=== PATIENT | female | born 1985 | race Hispanic/Latino ===

== ENCOUNTER 2023-03-19 18:01 | Emergency (ER) | payer SELFPAY ==
--- OUTSIDE RECORDS SUMMARY | 2023-03-19 18:07 | XMS REPORT | Continuity of Care Document ---
:1985 Author Organization [facility] t Address [address] [place] [address] Care Team Providers Name Role Phone PCP, PATIENT DOES NOT HAVE A Primary Care Physician UnavailKAREN Braxton Attending Clinician Unavailable Karen Mae CNM Attending Clinician DAVIDSON RHODES Attending Clinician Unavailable [facility] Attending Clinician Unavailable Unknown, Attending Attending Clinician Unavailable RAUL STAPLETON Attending Clinician Unavailable NurseNew Rmchsudheer Rgv Cprit Obgyn Attending Clinician Unavail able Raul Cuello Attending Clinician [phone] Doctor Unassigned, Ferdinand Attending Clinician Unavailable DAO YO Attending Clinician Unavailable Dao Gautam Attending Clinician LINUS VARGAS Attending Clinician Unavailable Linus Vargas MD Attending Clinician Cruz Bonilla MD Attending Clinician Minesh Reaves MD Attending Clinician Sav Claros DO Attending Clinician Aicha WOLFE, Hong Ortega Attending Clinician MINESH REAVES Attending Clinician Unavailable BERKLEY MORALES Attending Clinician Unavailable Carmen JEWELRY POLISHER, Berkley N Attending Clinician Lab, Ang-Rmchp Attending Clinician Unavailable Ultrasound, Ang-Mfm Attending Clinician Unavailable Po Sandy DOy Attending Clinician GOMEZ PATTON Attending Clinician Unavailable Provider, Ang-[facility] Temp Attending Clinician Unavailable La WHCNPGomez O Attending Clinician [phone] Lab, Pea-Rmchp Attending Clinician Unavailable Traci Cleary MD Attending Clinician Dhruv KWOK, Selam Dee Attending Clinician SELAM CORONADO Attending Clinician Unavailable 1, [facility] Us Room Attending Clinician Unavailable LINSU VARGAS Admitting Clinician Unavailable Linus Vargas MD Admitting Clinician Payers Payer Name Policy Type Policy Number Effective Date Expiration Date [employer] [id number] 2023 ALEKS 101-150% 00:00:00 LANDON MOM CHIP [id number] 2021 2021 YVONNE LOW [employer] 00:00:00 00:00:00 Problems Condition Condition Condition Status Onset Resolution Last Treating Co mments Source Name Details Category Date Date Treatment Clinician Date Elevated Elevated Disease Active 2022-05 Unive rs blood blood 0-07 ity of pressure pressure 00:00: [place] reading reading 00 Medical without without Branch diagnosis diagnosis of of hypertensi hypertensi on on Disease Active Univers (spontaneo (spontaneo 1-20 it y of [place] vaginal [place] vaginal [place] delivery[place] delivery[place] 00 [facility] Branch Single Single Disease Active Univers live live 1-20 it y of 00:00: [place] 00 Medical Branch History of History of Disease Active U nivers bilateral bilateral 1-20 ity of tubal tubal 00:00: [place] ligation ligation 00 Medica l Branch Gestationa Gestationa Disease Active U nivers l l 1-20 ity of hypertensi hypertensi 00:00: [place] on on 00 Medical Branch 39 weeks 39 weeks Disease Active Unive rs gestation gestation 1-18 ity of of of 00:00: [place] 00 [facility] Branch Encounter Encounter Disease Active Uni vers for for 1-18 ity of induction induction 00:00[place] of labor of labor 00 Medica [place] Branch Overweight Overweight Disease Active 2020-05 U nivers (BMI (BMI 2-23 ity of 25.0-29.9) 25.0-29.9) 00:00: [place] 00 [place] AMA AMA Disease Active 2020-05 Univers (advanced (advanced 2-09 ity of maternal maternal 00:00: [place] age) age) 00 Medical multigravi multigravi Br anch da 35+, da 35+, second second trimester trimester Multiparit Multiparit Disease Active 2020-05 U nivers y y 2-09 ity of 00:00: [place] 00 Medical Branch 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) 00 Medica l infection infection Bran ch Anemia of Anemia of Disease Active 2020-05 Uni vers mother in mother in 209 ity of , , 00:00: [place] antepartum antepartum 00 Me dical Branch Diet Diet Disease Active 2020-05 Univers controlled controlled 2- it y of gestationa gestationa 00:00: [place] l diabetes l diabetes 00 Me dical mellitus mellitus Branch (GDM), (GDM), antepartum antepartum Supervisio Supervisio Disease Active 2020-05 U nivers n of high n of high 2-09 ity of risk risk 00:00: [place] 00 [facility] in third in third Branch trimester trimester Anemia of Anemia of Disease Active 2020-05 Uni vers mother in mother in 2 ity of , , 00:00: [place] antepartum antepartum 00 Me dical Branch Maternal Maternal Disease Active Overview: Un joyce varicella, varicella, 01-20 Formattin ity of non-immune non-immune 00:00: g of this [place] note Medical might be Branch different from the original. Address in PP Obese Obese Disease Active Overview: Univer s 09-23 Formattin ity of 00:00: g of this [place] note Medical might be Branch different from the original. ICD10 Diagnosis Term [employer] Utility Allergies, Adverse Reactions, Alerts Allergy Allergy Status Severity Reaction(s) Onset Inactive Treating Comm ents Source Name Type Date Date Clinician NO KNOWN Drug Active Univers ALLERGIE Class ity of S [place] [facility] [place] Social History Social Habit Start Date Stop Date Quantity Comments Source ASSERTION 2020-09-20 University of 00:00:00 [facility] Sexual orientation Univer sity of [place] [facility] [place] History SDOH University o f Alcohol Frequency [place] M edical Branch History SDOH University o f Alcohol Std Drinks [place] [facility] History SDOH University o f Alcohol Binge [place] [facility] Exposure to Not sure University of SARS-CoV-2 (event) [facility] Alcohol intake 2023-03-07 2023-03-07 Current drinker Unive rsity of 00:00:00 00:00:00 of alcohol [place] [facility] (finding) Branch History of Social 2023-03-07 2023-03-07 Univers ity of function 00:00:00 00:00:00 [facility] Tobacco use and 2023-02-20 2023-02-20 Smokeless Universit y of exposure 00:00:00 00:00:00 tobacco non-user [facility] dical [place] Alcohol Comment 2012-09-23 2012-09-23 Socially Universit y of 00:00:00 00:00:00 [facility] Sex Assigned At [birth year]28 Universit y of 00:00:00 00:00:00 [facility] Smoking Status Start Date Stop Date Source Tobacco smoking [facility] Never smoked tobacco [facility] Medications Ordered Filled Start Stop Current Ordering Indication Dosage Frequency Signature Comments Components Source Medication Medication Date Date Medication? Clinician (SIG) Name Name SERTraline 2022-05 Yes [id number] 100mg Take 1 Univers 100 mg 0-04 tablet by ity of tablet 00:00: mouth [place] 00 daily. Medical Branch SERTraline 2022-05 Yes [id number] 100mg Take 1 Univers 100 mg 0-04 tablet by ity of tablet 00:00: mouth [place] 00 daily. Medical Branch SERTraline 2022-05 Yes [id number] 100mg Take 1 Univers 100 mg 0-04 tablet by ity of tablet 00:00: mouth [place] 00 daily. Medical Branch SERTraline 2022-05 Yes [id number] 100mg Take 1 Univers 100 mg 0-04 tablet by ity of tablet 00:00: mouth [place] 00 daily. Medical Branch 2021-0 Yes [id number] 1{tbl} Take 1 Univers [id number] 1-20 tablet by ity of fum-folic 00:00: mouth [place] () 00 daily. Medical 27 mg iron- Branch 1 mg Tab docusate 2021-0 Yes [id number] 240mg Take 1 U nivers calcium 240 1-20 capsule by it y of mg capsule 00:00: mouth once [place] 00 daily as Medical needed for Branch Constipati on. ferrous 2021-0 Yes [id number] 325mg Take 1 Un joyce sulfate 325 1-20 tablet by ity of mg (65 mg 00:00: mouth 2 [place] iron) 00 (two) Medical tablet times Branch daily. ibuprofen 0 Yes [id number] 600mg Take 1 Univers 600 mg 1-20 tablet by ity of tablet 00:00: mouth [place] 00 every 6 Medical (six) Branch hours as needed (Pain). Take with food or milk. 2021-0 Yes [id number] 1{tbl} Take 1 Univers [id number] 1-20 tablet by ity of fum-folic 00:00: mouth [place] () 00 daily. Medical 27 mg iron- Branch 1 mg Tab docusate 0 Yes [id number] 240mg Take 1 U nivers calcium 240 1-20 capsule by it y of mg capsule 00:00: mouth once [place] 00 daily as Medical needed for Branch Constipati on. ferrous 2021-0 Yes [id number] 325mg Take 1 Un joyce sulfate 325 1-20 tablet by ity of mg (65 mg 00:00: mouth 2 [place] iron) 00 (two) Medical tablet times Branch daily. ibuprofen 0 Yes [id number] 600mg Take 1 Univers 600 mg 1-20 tablet by ity of tablet 00:00: mouth [place] 00 every 6 Medical (six) Branch hours as needed (Pain). Take with food or milk. ibuprofen 0 Yes 600mg 600 mg, Univ ers (IBU) 1-20 Oral, Q6H, ity of tablet 600 00:00: First dose [place] mg 00 (after Medical last Branch modificati on) on Sat06/07/21 at 1800, Until Discontinu ed, Routine simethicone 2022-0 Yes 125mg 125 mg, Un joyce (MYLICON) 1-20 Oral, ity of chewable 00:00: PC+HS, [place] tablet 125 00 First dose Med ical mg on Sat Branch 06/07/21 at 1800, Until Discontinu ed, Routine 2021-0 Yes [id number] 1{tbl} Take 1 Univers [id number] 1-20 tablet by ity of fum-folic 00:00: mouth [place] () 00 daily. Medical 27 mg iron- Branch 1 mg Tab docusate 0 Yes [id number] 240mg Take 1 U nivers calcium 240 1-20 capsule by it y of mg capsule 00:00: mouth once [place] 00 daily as Medical needed for Branch Constipati on. ferrous 0 Yes [id number] 325mg Take 1 Un joyce sulfate 325 1-20 tablet by ity of mg (65 mg 00:00: mouth 2 [place] iron) 00 (two) Medical tablet times Branch daily. ibuprofen 0 Yes [id number] 600mg Take 1 Univers 600 mg 1-20 tablet by ity of tablet 00:00: mouth [place] 00 every 6 Medical (six) Branch hours as needed (Pain). Take with food or milk. ibuprofen Yes 600mg 600 mg, Univ ers (IBU) 1-20 Oral, Q6H, ity of tablet 600 00:00: First dose [place] mg 00 (after Medical last Branch modificati on) on Sat06/07/21 at 1800, Until Discontinu ed, Routine simethicone Yes 125mg 125 mg, Un joyce (MYLICON) 1-20 Oral, ity of chewable 00:00: PC+HS, [place] tablet 125 00 First dose Med ical mg on Sat Branch 06/07/21 at 1800, Until Discontinu ed, Routine 0 Yes [id number] 1{tbl} Take 1 Univers [id number] 1-20 tablet by ity of fum-folic 00:00: mouth [place] () 00 daily. Medical 27 mg iron- Branch 1 mg Tab docusate 0 Yes [id number] 240mg Take 1 U nivers calcium 240 1-20 capsule by it y of mg capsule 00:00: mouth once [place] 00 daily as Medical needed for Branch Constipati on. ferrous 2022-0 Yes [id number] 325mg Take 1 Un joyce sulfate 325 1-20 tablet by ity of mg (65 mg 00:00: mouth 2 [place] iron) 00 (two) Medical tablet times Branch daily. ibuprofen 0 Yes [id number] 600mg Take 1 Univers 600 mg 1-20 tablet by ity of tablet 00:00: mouth [place] 00 every 6 Medical (six) Branch hours as needed (Pain). Take with food or milk. Yes [id number] 1{tbl} Take 1 Univers [id number] 1-20 tablet by ity of fum-folic 00:00: mouth [place] () 00 daily. Medical 27 mg iron- Branch 1 mg Tab docusate Yes [id number] 240mg Take 1 U nivers calcium 240 1-20 capsule by it y of mg capsule 00:00: mouth once [place] 00 daily as Medical needed for Branch Constipati on. ferrous Yes [id number] 325mg Take 1 Un joyce sulfate 325 1-20 tablet by ity of mg (65 mg 00:00: mouth 2 [place] iron) 00 (two) Medical tablet times Branch daily. ibuprofen Yes [id number] 600mg Take 1 Univers 600 mg 1-20 tablet by ity of tablet 00:00: mouth [place] 00 every 6 Medical (six) Branch hours as needed (Pain). Take with food or milk. Yes [id number] 1{tbl} Take 1 Univers [id number] 1-20 tablet by ity of fum-folic 00:00: mouth [place] () 00 daily. Medical 27 mg iron- Branch 1 mg Tab docusate 0 Yes [id number] 240mg Take 1 U nivers calcium 240 1-20 capsule by it y of mg capsule 00:00: mouth once [place] 00 daily as Medical needed for Branch Constipati on. ferrous 0 Yes [id number] 325mg Take 1 Un joyce sulfate 325 1-20 tablet by ity of mg (65 mg 00:00: mouth 2 [place] iron) 00 (two) Medical tablet times Branch daily. ibuprofen 0 Yes [id number] 600mg Take 1 Univers 600 mg 1-20 tablet by ity of tablet 00:00: mouth [place] 00 every 6 Medical (six) Branch hours as needed (Pain). Take with food or milk. 2022- No [id number] 1{tbl} Take 1 Univers [id number] 1-20 10-04 tablet by it y of fum-folic 00:00: 00:00 mouth [place] () 00 :00 daily. Medical 27 mg iron- Branch 1 mg Tab docusate 2022- No [id number] 240mg Take 1 Univers calcium 240 1-20 10-04 capsule by i ty of mg capsule 00:00: 00:00 mouth once [place] 00 :00 daily as Medical needed for Branch Constipati on. ferrous 2022- No [id number] 325mg Take 1 U nivers sulfate 325 1-20 10-04 tablet by it y of mg (65 mg 00:00: 00:00 mouth 2 [place] iron) 00 :00 (two) Medical tablet times Branch daily. ibuprofen 2022- No [id number] 600mg Take 1 Univers 600 mg 1-20 10-04 tablet by ity of tablet 00:00: 00:00 mouth [place] 00 :00 every 6 Medical (six) Branch hours as needed (Pain). Take with food or milk. 2022- No [id number] 1{tbl} Take 1 Univers [id number] 1-20 10-04 tablet by it y of fum-folic 00:00: 00:00 mouth [place] () 00 :00 daily. Medical 27 mg iron- Branch 1 mg Tab docusate 2022- No [id number] 240mg Take 1 Univers calcium 240 1-20 10-04 capsule by i ty of mg capsule 00:00: 00:00 mouth once [place] 00 :00 daily as Medical needed for Branch Constipati on. ferrous 2022- No [id number] 325mg Take 1 U nivers sulfate 325 1-20 10-04 tablet by it y of mg (65 mg 00:00: 00:00 mouth 2 [place] iron) 00 :00 (two) Medical tablet times Branch daily. ibuprofen 2022- No [id number] 600mg Take 1 Univers 600 mg 1-20 10-04 tablet by ity of tablet 00:00: 00:00 mouth [place] 00 :00 every 6 Medical (six) Branch hours as needed (Pain). Take with food or milk. HYDROcodone 2021- No [id number] 1{tbl} Take 1 U nivers -acetaminop 1-20 - tablet by it y of hen 5-325 00:00: 05:59 mouth [place] mg tablet 00 :00 every 6 Medical (six) Branch hours as needed for Pain (scale 7-10) for up to 7 days. Indication s: acute pain HYDROcodone 2021- No [id number] 1{tbl} Take 1 U nivers -acetaminop 1-20 - tablet by it y of hen 5-325 00:00: 05:59 mouth [place] mg tablet 00 :00 every 6 Medical (six) Branch hours as needed for Pain (scale 7-10) for up to 7 days. Indication s: acute pain HYDROcodone No [id number] 1{tbl} Take 1 U nivers -acetaminop -06-16 tablet by it y of hen 5-325 00:00: 05:59 mouth [place] mg tablet 00 :00 every 6 Medical (six) Branch hours as needed for Pain (scale 7-10) for up to 7 days. Indication s: acute pain HYDROcodone Yes 1{tbl} 1 tablet, Univers -acetaminop 1-19 Oral, ity of hen (NORCO 23:35: Q6HPRN, [place] 5) 5-325 mg 56 Starting Medi scooter tablet 1 on Wed Branch tablet 06/07/21 at 1735, Until Discontinu ed, Routine, Pain (scale 7-10) HYDROcodone Yes 1{tbl} 1 tablet, Univers -acetaminop 1-19 Oral, ity of hen (NORCO 23:35: Q6HPRN, [place] 5) 5-325 mg 56 Starting Medi scooter tablet 1 on Wed Branch tablet 06/07/21 at 1735, Until Discontinu ed, Routine, Pain (scale 7-10) rho(D) Yes 300ug 300 mcg, Univer s immune 1-19 Intramuscu ity of globulin 23:18: lar, ONCE, [place] as (RHOGAM) 42 For 1 Medical syringe 300 dose, Branch mcg Conditiona l, Routine rho(D) Yes 300ug 300 mcg, Univer s immune 1-19 Intramuscu ity of globulin 23:18: lar, ONCE, [place] (RHOGAM) 42 For 1 Medical syringe 300 dose, Branch mcg Conditiona l, Routine diphenhydrA 2021-0 Yes 25mg 25 mg, Univ ers MINE 06-07 Oral, ity of (BENADRYL) 23:18: Q6HPRN, [place] tablet 25 24 Starting Medica l mg on Wed Branch 06/07/21 at 1718, Until Discontinu ed, Routine, Sleep, Itching ondansetron 2022-0 Yes 4mg 4 mg, Slow Univers (ZOFRAN 19 IV Push, ity of (PF)) 23:18: Q8HPRN, [place] injection 4 24 Starting Medi scooter mg on Wed Branch 06/07/21 at 1718, Until Discontinu ed, Routine, Nausea and Vomiting (N/V) docusate 2-0 Yes 240mg 240 mg, Unive rs calcium 06-07 Oral, ity of (SURFAK) 23:18: QDAILYPRN, [place] capsule 240 24 Starting Medi scooter mg on Wed Branch 06/07/21 at 1718, Until Discontinu ed, Routine, Constipati on magnesium 2021-0 Yes 30mL 30 mL, Univer s hydroxide 06-07 Oral, ity of (MILK OF 23:18: QDAILYPRN, [place] MAGNESIA) 24 Starting Medica l 400 mg/5 mL on Wed Branch suspension 06/07/21 at 30 mL 1718, Until Discontinu ed, Routine, Constipati on diphenhydrA 2-0 Yes 25mg 25 mg, Univ ers MINE 06-07 Oral, ity of (BENADRYL) 23:18: Q6HPRN, [place] tablet 25 24 Starting Medica l mg on Wed Branch 06/07/21 at 1718, Until Discontinu ed, Routine, Sleep, Itching ondansetron 2-0 Yes 4mg 4 mg, Slow Univers (ZOFRAN 1-19 IV Push, ity of (PF)) 23:18: Q8HPRN, [place] injection 4 24 Starting Medi scooter mg on Wed Branch 06/07/21 at 1718, Until Discontinu ed, Routine, Nausea and Vomiting (N/V) docusate 2022-0 Yes 240mg 240 mg, Unive rs calcium 06-07 Oral, ity of (SURFAK) 23:18: QDAILYPRN, [place] capsule 240 24 Starting Medi scooter mg on Wed Branch 06/07/21 at 1718, Until Discontinu ed, Routine, Constipati on magnesium 0 Yes 30mL 30 mL, Univer s hydroxide 06-07 Oral, ity of (MILK OF 23:18: QDAILYPRN, [place] MAGNESIA) 24 Starting Medica l 400 mg/5 mL on Wed Branch suspension 06/07/21 at 30 mL 1718, Until Discontinu ed, Routine, Constipati on acetaminoph 0 Yes 650mg 650 mg, Un joyce en 06-07 Oral, ity of (TYLENOL) 23:18: Q6HPRN, [place] tablet 650 23 Starting Medic al mg on Wed Branch 06/07/21 at 1718, Until Discontinu ed, Routine, Pain (scale 1-3) benzocaine- 2021-0 Yes Topical, Un joyce menthol 06-07 PRN, ity of (DERMOPLAST 23:18: Starting [place] ) 20-0.5 % 23 on Wed Medical topical 06/07/21 at Branch spray 1718, Until Discontinu ed, Routine, Perineum discomfort acetaminoph 0 Yes 650mg 650 mg, Un joyce en 06-07 Oral, ity of (TYLENOL) 23:18: Q6HPRN, [place] tablet 650 23 Starting Medic al mg on Wed Branch 06/07/21 at 1718, Until Discontinu ed, Routine, Pain (scale 1-3) benzocaine- 0 Yes Topical, Un joyce menthol 06-07 PRN, ity of (DERMOPLAST 23:18: Starting [place] ) 20-0.5 % 23 on Wed Medical topical 06/07/21 at Branch spray 1718, Until Discontinu ed, Routine, Perineum discomfort bupivacaine 2021- No PRN, Unive rs (preserv 06-07 Starting ity of free) 20:37: 23:36 on Sat [place] (SENSORCAIN 00 :59 06/07/21 at Ks dicnh E MPF) 0.25 1437, Branch % (2.5 Until Sat mg/mL) 06/07/21 at injection 1736, Routine, Intra-op lactated Yes 500mL at 999 Univer s ringers IV 1- mL/hr, 500 ity of infusion 07:47: mL, IV [place] 500 mL 51 Infusion, Medical PRN - SEE Branch INSTRUCTIO NS, 1 dose, Starting on Sat06/07/21 at 0147, Until Discontinu ed, Routine lactated 0 Yes 500mL at 999 Univer s ringers IV 1- mL/hr, 500 ity of infusion 07:47: mL, IV [place] 500 mL 51 Infusion, Medical PRN - SEE Branch INSTRUCTIO NS, 1 dose, Starting on Sat06/07/21 at 0147, Until Discontinu ed, Routine sodium 2021- No 30mL 30 mL, Univers citrate-cit 06-07 Oral, ity of bairon acid 07:47: 19:44 PRE-PROCED [place] (BICITRA) 51 :00 URE ONCE, Medic al 500-334 1 dose, Branch mg/5 mL Starting solution 30 on Sat mL 06/07/21 at 0147, Until Discontinu ed, Routine, Surgery/Pr ocedure fentaNYL-ro 2021- No Epidural, Univers pivacaine 2 06-07 CONTINUOUS i ty of mcg/mL-0.1 06:40: 22:50 PRN, [place] % (PF) in 00 :51 Starting Medica l NS 200 mL on Sat Branch epidural 06/07/21 at infusion 0040, RTU Until Discontinu ed, Routine, Intra-op lidocaine-e 2021- No Epidural, Univers pinephrine 06-07 ONCE INTRA it y of (XYLOCAINE 06:36: 22:50 PROCEDURE, [place] W/EPINEPHRI 00 :51 Starting Medi scooter NE) 1.5 on Sat Branch %-1:200,000 06/07/21 at injection 0036, Until Discontinu ed, Routine, Intra-op [id number] IV 2021- No 1000mL at 125 Uni vers infusion 06-07 mL/hr, IV ity o f 1,000 mL 04:15: 23:36 Infusion, [place] as 00 :59 CONTINUOUS Medical , Starting Branch on Sat06/06/21 at 2215, Until Sat06/07/21 at 1736, Routine Sliding 2021- No Subcutaneo Uni vers Scale 06-07 us, ity of Insulin - 04:11: 23:36 SEE-INSTRU [place] Regular + 45 :59 CTIONS, Medical Fsbg Starting Branch Testing on Sat06/06/21 at 2211, Until Sat06/07/21 at 1736, Routine sodium 2021- No 30mL 30 mL, Univers citrate-cit 06-07 Oral, ity of bairon acid 04:10: 05:26 PRE-PROCED [place] (BICITRA) 02 :00 URE ONCE, Medic al 500-334 1 dose, Branch mg/5 mL Starting solution 30 on Sat mL 06/06/21 at 2210, Until Discontinu ed, Routine, Surgery/Pr ocedure [facility] 2020-05 Yes [id number] 500mg Take 1 Univers r (VALTREX) 2-23 tablet by ity of 500 mg 00:00: mouth [place] tablet 00 daily. [facility] Yes [id number] 500mg Take 1 Univers r (VALTREX) 2-23 tablet by ity of 500 mg 00:00: mouth [place] tablet 00 daily. [facility] Yes [id number] 500mg Take 1 Univers r (VALTREX) 2-23 tablet by ity of 500 mg 00:00: mouth [place] tablet 00 daily. [facility]05 Yes [id number] 500mg Take 1 Univers r (VALTREX) 2-23 tablet by ity of 500 mg 00:00: mouth [place] tablet 00 daily. Medical Branch valACYclovi 2020-05 Yes [id number] 500mg Take 1 Univers r (VALTREX) 2-23 tablet by ity of 500 mg 00:00: mouth [place] tablet 00 daily. [facility]05 Yes [id number] 500mg Take 1 Univers r (VALTREX) 2-23 tablet by ity of 500 mg 00:00: mouth [place] tablet 00 daily. [facility]05 Yes [id number] 500mg Take 1 Univers r (VALTREX) 2-23 tablet by ity of 500 mg 00:00: mouth [place] tablet 00 daily. [facility]05 Yes [id number] 500mg Take 1 Univers r (VALTREX) 2-23 tablet by ity of 500 mg 00:00: mouth [place] tablet 00 daily. Medical Branch [facility] 2020-05 Yes [id number] 500mg Take 1 Univers r (VALTREX) 2-23 tablet by ity of 500 mg 00:00: mouth [place] tablet 00 daily. Medical Branch [facility] 2020-05 Yes [id number] 500mg Take 1 Univers r (VALTREX) 2-23 tablet by ity of 500 mg 00:00: mouth [place] tablet 00 daily. Medical Branch [facility] 2020-05 Yes [id number] 500mg Take 1 Univers r (VALTREX) 2-23 tablet by ity of 500 mg 00:00: mouth [place] tablet 00 daily. Medical Branch [facility] 2020-05 Yes [id number] 500mg Take 1 Univers r (VALTREX) 2-23 tablet by ity of 500 mg 00:00: mouth [place] tablet 00 daily. Medical Branch [facility] 2020-05 Yes [id number] 500mg Take 1 Univers r (VALTREX) 2-23 tablet by ity of 500 mg 00:00: mouth [place] tablet 00 daily. Medical Branch [facility] 2020-05 Yes [id number] 500mg Take 1 Univers r (VALTREX) 2-23 tablet by ity of 500 mg 00:00: mouth [place] tablet 00 daily. Medical Branch [facility] 2020-05 Yes [id number] 500mg Take 1 Univers r (VALTREX) 2-23 tablet by ity of 500 mg 00:00: mouth [place] tablet 00 daily. Medical Branch [facility] 2020-05- No [id number] 500mg Take 1 Univers r (VALTREX) 2-23 10-04 tablet by it y of 500 mg 00:00: 00:00 mouth [place] tablet 00 :00 daily. Medical Branch [facility] 2020-05- No [id number] 500mg Take 1 Univers r (VALTREX) 2-23 10-04 tablet by it y of 500 mg 00:00: 00:00 mouth [place] tablet 00 :00 daily. Medical Branch Lancets 2020-05 Yes [id number] Use as Univ ers (COMFORT 1-30 directed ity of LANCETS) 00:00: QID [place] Misc 00 Medical Branch blood sugar 2020-05 Yes [id number] Use as Univers diagnostic 1-30 directed ity o f (ASCENSIA 00:00: QID [place] MICROFILL) 00 Medical strip Branch ONETOUCH 2020- Yes Univers VERIO 1-30 ity of REFLECT 00:00: [place] METER Misc 00 Medical Branch ONETOUCH 2020- Yes Univers DELICA PLUS 1-30 ity of LANCET 33 00:00: [place] gauge Misc 00 Medical Branch Lancets 2020- Yes [id number] Use as Univ ers (COMFORT 1-30 directed ity of LANCETS) 00:00: QID [place] Misc 00 Medical Branch blood sugar 2020-05 Yes [id number] Use as Univers diagnostic 1-30 directed ity o f (ASCENSIA 00:00: QID [place] MICROFILL) 00 Medical strip Branch ONETOUCH 2020-05 Yes Univers VERIO 1-30 ity of REFLECT 00:00: [place] METER Misc 00 Medical Branch ONETOUCH 2020-05 Yes Univers DELICA PLUS 1-30 ity of LANCET 33 00:00: [place] gauge Misc 00 Medical Branch Lancets 2020- Yes [id number] Use as Univ ers (COMFORT 1-30 directed ity of LANCETS) 00:00: QID [place] Misc 00 Medical Branch blood sugar 2020- Yes [id number] Use as Univers diagnostic 1-30 directed ity o f (ASCENSIA 00:00: QID [place] MICROFILL) 00 Medical strip Branch ONETOUCH 2020- Yes Univers VERIO 1-30 ity of REFLECT 00:00: [place] METER Misc 00 [facility] ONETOUCH 2020- Yes Univers DELICA PLUS 1-30 ity of LANCET 33 00:00: [place] gauge Misc 00 [facility] Lancets 2020- Yes [id number] Use as Univ ers (COMFORT 1-30 directed ity of LANCETS) 00:00: QID [place] Misc 00 [facility] blood sugar 2020- Yes [id number] Use as Univers diagnostic 1-30 directed ity o f (ASCENSIA 00:00: QID [place] MICROFILL) 00 Medical strip Branch ONETOUCH 2020-05 Yes Univers VERIO 1-30 ity of REFLECT 00:00: [place] METER Misc 00 [facility] ONETOUCH 2020- Yes Univers DELICA PLUS 1-30 ity of LANCET 33 00:00: [place] gauge Misc 00 [facility] Lancets 2020- Yes [id number] Use as Univ ers (COMFORT 1-30 directed ity of LANCETS) 00:00: QID [place] Misc 00 [facility] blood sugar 2020- Yes [id number] Use as Univers diagnostic 1-30 directed ity o f (ASCENSIA 00:00: QID [place] MICROFILL) 00 Medical strip Branch ONETOUCH 2020-05 Yes Univers VERIO 1-30 ity of REFLECT 00:00: [place] METER Misc 00 [facility] ONETOUCH 2020- Yes Univers DELICA PLUS 1-30 ity of LANCET 33 00:00: [place] gauge Misc 00 [facility] Lancets 2020- Yes [id number] Use as Univ ers (COMFORT 1-30 directed ity of LANCETS) 00:00: QID [place] Misc 00 [facility] blood sugar 2020-05 Yes [id number] Use as Univers diagnostic 1-30 directed ity o f (ASCENSIA 00:00: QID [place] MICROFILL) 00 Medical strip Branch ONETOUCH 2020-05 Yes Univers VERIO 1-30 ity of REFLECT 00:00: [place] METER Misc 00 [facility] ONETOUCH 2020-05 Yes Univers DELICA PLUS 1-30 ity of LANCET 33 00:00: [place] gauge Misc 00 [facility] Lancets 2020- Yes [id number] Use as Univ ers (COMFORT 1-30 directed ity of LANCETS) 00:00: QID [place] Misc 00 [facility] blood sugar 2020-05 Yes [id number] Use as Univers diagnostic 1-30 directed ity o f (ASCENSIA 00:00: QID [place] MICROFILL) 00 Medical strip Branch ONETOUCH 2020- Yes Univers VERIO 1-30 ity of REFLECT 00:00: [place] METER Misc 00 [facility] ONETOUCH 2020- Yes Univers DELICA PLUS 1-30 ity of LANCET 33 00:00: [place] gauge Misc 00 [facility] Lancets 2020-2021- No [id number] Use as Uni vers (COMFORT 1-30 01-20 directed ity of LANCETS) 00:00: 00:00 QID [place] Misc 00 :00 Medical [facility] blood sugar 2020-2021- No [id number] Use as Univers diagnostic 1-30 -20 directed ity of (ASCENSIA 00:00: 00:00 QID [place] MICROFILL) 00 :00 Medical strip Branch ONETOUCH 2020-05- No Univers VERIO 1-30 -20 ity of REFLECT 00:00: 00:00 [place] METER Misc 00 :00 Medical Branch ONETOUCH 2020-05- No Univers DELICA PLUS 1-30 -20 ity of LANCET 33 00:00: 00:00 [place] gauge Misc 00 :00 Medical [facility] Lancets 2020-05- No [id number] Use as Uni vers (COMFORT 06-18-20 directed ity of LANCETS) 00:00: 00:00 QID [place] Misc 00 :00 Medical [facility] blood sugar 2020-05- No [id number] Use as Univers diagnostic 06-18-20 directed ity of (ASCENSIA 00:00: 00:00 QID [place] MICROFILL) 00 :00 Medical strip Branch ONETOUCH 2020-05- No Univers VERIO -30 -20 ity of REFLECT 00:00: 00:00 [place] METER Misc 00 :00 Medical Branch ONETOUCH 2020-05- No Univers DELICA PLUS 1-30 -20 ity of LANCET 33 00:00: 00:00 [place] gauge Misc 00 :00 Medical [facility] Lancets 2020-2021- No [id number] Use as Uni vers (COMFORT 06-18-20 directed ity of LANCETS) 00:00: 00:00 QID [place] Misc 00 :00 Medical Branch blood sugar 2020-2021- No [id number] Use as Univers diagnostic 30 -20 directed ity of (ASCENSIA 00:00: 00:00 QID [place] MICROFILL) 00 :00 Medical strip Branch ONETOUCH 2020-05- No Univers VERIO 1-30 -20 ity of REFLECT 00:00: 00:00 [place] METER Misc 00 :00 Medical Branch ONETOUCH 2020-2021- No Univers DELICA PLUS 1-30 -20 ity of LANCET 33 00:00: 00:00 [place] gauge Misc 00 :00 Medical Branch 1-0 Yes [id number] 1{packe Take 1 Univers vit 9-28 t} Packet by ity of 33-iron-fol 00:00: mouth [place] ic-dha 00 daily. Medical (SELECT-OB Branch + DHA) 29 mg iron-1 mg -250 mg combo pack Yes [id number] 1{packe Take 1 Univers vit 9-28 t} Packet by ity of 33-iron-fol 00:00: mouth [place] ic-dha 00 daily. Medical (SELECT-OB Branch + DHA) 29 mg iron-1 mg -250 mg combo pack Yes [id number] 1{packe Take 1 Univers vit 9-28 t} Packet by ity of 33-iron-fol 00:00: mouth [place] ic-dha 00 daily. Medical (SELECT-OB Branch + DHA) 29 mg iron-1 mg -250 mg combo pack Yes [id number] 1{packe Take 1 Univers vit 9-28 t} Packet by ity of 33-iron-fol 00:00: mouth [place] ic-dha 00 daily. Medical (SELECT-OB Branch + DHA) 29 mg iron-1 mg -250 mg combo pack Yes [id number] 1{packe Take 1 Univers vit 9-28 t} Packet by ity of 33-iron-fol 00:00: mouth [place] ic-dha 00 daily. Medical (SELECT-OB Branch + DHA) 29 mg iron-1 mg -250 mg combo pack Yes [id number] 1{packe Take 1 Univers vit 9-28 t} Packet by ity of 33-iron-fol 00:00: mouth [place] ic-dha 00 daily. Medical (SELECT-OB Branch + DHA) 29 mg iron-1 mg -250 mg combo pack Yes [id number] 1{packe Take 1 Univers vit 9-28 t} Packet by ity of 33-iron-fol 00:00: mouth [place] ic-dha 00 daily. Medical (SELECT-OB Branch + DHA) 29 mg iron-1 mg -250 mg combo pack 0 2021- No [id number] 1{packe Take 1 Univers vit 9-28 01-20 t} Packet by ity of 33-iron-fol 00:00: [place] :00 daily. Medical (SELECT-OB Branch + DHA) 29 mg iron-1 mg -250 mg combo pack 2021- No [id number] 1{packe Take 1 Univers vit 928 01-20 t} Packet by ity of 33-iron-fol 00:00: 00:[place] ic-dha 00 :00 daily. Medical (SELECT-OB Branch + DHA) 29 mg iron-1 mg -250 mg combo pack 2021- No [id number] 1{packe Take 1 Univers vit 9-28 01-20 t} Packet by ity of 33-iron-fol 00:00: 00:[place] ic-dha 00 :00 daily. Medical (SELECT-OB Branch + DHA) 29 mg iron-1 mg -250 mg combo pack Immunizations Ordered Filled Date Status Comments Source Immunization Name Immunization Name TDAP 2021-04-04 Completed University of 00:00:00 [facility] TDAP 2021-04-04 Completed University of 00:00:00 [facility] TDAP 2021-04-04 Completed University of 00:00:00 [facility] TDAP 2021-04-04 Completed University of 00:00:00 [facility] TDAP 2021-04-04 Completed University of 00:00:00 [facility] TDAP 2021-04-04 Completed University of 00:00:00 [facility] TDAP 2021-04-04 Completed University of 00:00:00 [facility] TDAP 2021-04-04 Completed University of 00:00:00 [facility] TDAP 2021-04-04 Completed University of 00:00:00 [facility] TDAP 2021-04-04 Completed University of 00:00:00 [facility] TDAP 2021-04-04 Completed University of 00:00:00 [facility] TDAP 2021-04-04 Completed University of 00:00:00 [facility] TDAP 2021-04-04 Completed University of 00:00:00 [facility] SARS-COV-2 COVID-19 2021-01-08 Completed Unive rsity of MODERNA VACCINE 00:00:00 [facility] SARS-COV-2 COVID-19 2021-01-08 Completed Unive rsity of MODERNA VACCINE 00:00:00 [facility] SARS-COV-2 COVID-19 2021-01-08 Completed Unive rsity of MODERNA VACCINE 00:00:00 [place] [facility] SARS-COV-2 COVID-19 2021-01-08 Completed Unive rsity of MODERNA VACCINE 00:00:00 [place] [facility] SARS-COV-2 COVID-19 2021-01-08 Completed Unive rsity of MODERNA VACCINE 00:00:00 [place] [facility] SARS-COV-2 COVID-19 2021-01-08 Completed Unive rsity of MODERNA VACCINE 00:00:00 [place] [facility] SARS-COV-2 COVID-19 2021-01-08 Completed Unive rsity of MODERNA VACCINE 00:00:00 [place] [facility] SARS-COV-2 COVID-19 2021-01-08 Completed Unive rsity of MODERNA VACCINE 00:00:00 [place] [facility] SARS-COV-2 COVID-19 2021-01-08 Completed Unive rsity of MODERNA VACCINE 00:00:00 [place] [facility] SARS-COV-2 COVID-19 2021-01-08 Completed Unive rsity of MODERNA VACCINE 00:00:00 [place] [facility] SARS-COV-2 COVID-19 2021-01-08 Completed Unive rsity of MODERNA VACCINE 00:00:00 [place] [facility] SARS-COV-2 COVID-19 2021-01-08 Completed Unive rsity of MODERNA VACCINE 00:00:00 [place] [facility] SARS-COV-2 COVID-19 2021-01-08 Completed Unive rsity of MODERNA VACCINE 00:00:00 [place] [facility] SARS-COV-2 COVID-19 2020-12-11 Completed Unive rsity of MODERNA VACCINE 00:00:00 [place] [facility] SARS-COV-2 COVID-19 2020-12-11 Completed Unive rsity of MODERNA VACCINE 00:00:00 [place] [facility] SARS-COV-2 COVID-19 2020-12-11 Completed Unive rsity of MODERNA VACCINE 00:00:00 [place] [facility] SARS-COV-2 COVID-19 2020-12-11 Completed Unive rsity of MODERNA VACCINE 00:00:00 [place] [facility] SARS-COV-2 COVID-19 2020-12-11 Completed Unive rsity of MODERNA VACCINE 00:00:00 [facility] SARS-COV-2 COVID-19 2020-12-11 Completed Unive rsity of MODERNA VACCINE 00:00:00 [facility] SARS-COV-2 COVID-19 2020-12-11 Completed Unive rsity of MODERNA VACCINE 00:00:00 [facility] SARS-COV-2 COVID-19 2020-12-11 Completed Unive rsity of MODERNA VACCINE 00:00:00 [facility] SARS-COV-2 COVID-19 2020-12-11 Completed Unive rsity of MODERNA VACCINE 00:00:00 [facility] SARS-COV-2 COVID-19 2020-12-11 Completed Unive rsity of MODERNA VACCINE 00:00:00 [facility] SARS-COV-2 COVID-19 2020-12-11 Completed Unive rsity of MODERNA VACCINE 00:00:00 [facility] SARS-COV-2 COVID-19 2020-12-11 Completed Unive rsity of MODERNA VACCINE 00:00:00 [facility] SARS-COV-2 COVID-19 2020-12-11 Completed Unive rsity of MODERNA VACCINE 00:00:00 [facility] Rubella 2007-08-26 Completed University of 00:00:00 [facility] Td 2007-08-26 Completed University of 00:00:00 [facility] Rubella 2007-08-26 Completed University of 00:00:00 [facility] Td 2007-08-26 Completed University of 00:00:00 [facility] Rubella 2007-08-26 Completed University of 00:00:00 [facility] Td 2007-08-26 Completed University of 00:00:00 [facility] Rubella 2007-08-26 Completed University of 00:00:00 [facility] Td 2007-08-26 Completed University of 00:00:00 [facility] Rubella 2007-08-26 Completed University of 00:00:00 [facility] Td 2007-08-26 Completed University of 00:00:00 [facility] Rubella 2007-08-26 Completed University of 00:00:00 [facility] Td 2007-08-26 Completed University of 00:00:00 [facility] Rubella 2007-08-26 Completed University of 00:00:00 [facility] Td 2007-08-26 Completed University of 00:00:00 [place] [facility] Rubella 2007-08-26 Completed University of 00:00:00 [place] [facility] Td 2007-08-26 Completed University of 00:00:00 [facility] Rubella 2007-08-26 Completed University of 00:00:00 [place] [facility] Td 2007-08-26 Completed University of 00:00:00 [place] [facility] Rubella 2007-08-26 Completed University of 00:00:00 [place] [facility] Td 2007-08-26 Completed University of 00:00:00 [facility] Rubella 2007-08-26 Completed University of 00:00:00 [facility] Td 2007-08-26 Completed University of 00:00:00 [facility] Rubella 2007-08-26 Completed University of 00:00:00 [facility] Td 2007-08-26 Completed University of 00:00:00 [facility] Rubella 2007-08-26 Completed University of 00:00:00 [facility] Td 2007-08-26 Completed University of 00:00:00 [facility] Rubella Unknown Completed [facility] TD, NOS Unknown Completed [facility] [place] [facility] SARS-COV-2 COVID-19 Unknown Completed Unive rsity of [facility]NA 12[facility] SARS-COV-2 COVID-19 Unknown Completed Unive rsity of MODERNA 12+ [facility]RS [facility] TDAP Unknown Completed [facility] [place] [facility] HPV9 Unknown Completed [facility] [place] [facility] Rubella Unknown Completed [facility] [place] [facility] TD, NOS Unknown Completed [facility] [place] [facility] SARS-COV-2 COVID-19 Unknown Completed Unive rsity of MODERNA 12+ YRS [facility] SARS-COV-2 COVID-19 Unknown Completed Unive rsity of MODERNA 12+ YRS [facility] TDAP Unknown Completed [facility] [place] [facility] HPV9 Unknown Completed [facility] [place] [facility] Rubella Unknown Completed [facility] [place] [facility] TD, NOS Unknown Completed [facility] [place] [facility] SARS-COV-2 COVID-19 Unknown Completed Unive rsity of MODERNA 12+ YRS [facility] SARS-COV-2 COVID-19 Unknown Completed Unive rsity of MODERNA 12+ YRS [facility] TDAP Unknown Completed [facility] [place] [facility] HPV9 Unknown Completed [facility] [place] [facility] Rubella Unknown Completed [facility] [place] [facility] TD, NOS Unknown Completed [facility] [place] [facility] SARS-COV-2 COVID-19 Unknown Completed Unive rsity of MODERNA 12+ YRS [facility] SARS-COV-2 COVID-19 Unknown Completed Unive rsity of MODERNA 12+ YRS [facility] TDAP Unknown Completed [facility] [place] [facility] HPV9 Unknown Completed [facility] [place] [facility] Rubella Unknown Completed [facility] [place] [facility] TD, NOS Unknown Completed [facility] [place] [facility] SARS-COV-2 COVID-19 Unknown Completed Unive rsity of MODERNA 12+ YRS [facility] SARS-COV-2 COVID-19 Unknown Completed Unive rsity of MODERNA 12+ YRS [facility] TDAP Unknown Completed [facility] [place] [facility] HPV9 Unknown Completed [facility] [place] [facility] Rubella Unknown Completed [facility] [place] [facility] TD, NOS Unknown Completed [facility] [place] [facility] SARS-COV-2 COVID-19 Unknown Completed Unive rsity of MODERNA 12+ YRS [facility] SARS-COV-2 COVID-19 Unknown Completed Unive rsity of MODERNA 12+ YRS [facility] TDAP Unknown Completed [facility] [place] [facility] Vital Signs Vital Name Observation Time Observation Value Comments Source Systolic blood 2023-03-07 16:20:00 100 mm[Hg] manual Univer sity of pressure [facility] Diastolic blood 2023-03-07 16:20:00 74 mm[Hg] manual Unive rsity of pressure [facility] Heart rate 2023-03-07 16:07:00 79 /min [facility] Body temperature 2023-03-07 16:07:00 36.67 Radha [facility] 2023-03-07 16:07:00 18 /min [facility] height 2023-03-07 16:07:00 152.4 cm [facility] Body weight 2023-03-07 16:07:00 63.56 kg [facility] BMI 2023-03-07 16:07:00 27.37 kg/m2 [facility] Diastolic blood 2023-02-27 19:01:00 92 mm[Hg] Unive rsity of pressure [facility] Heart rate 2023-02-27 19:01:00 64 /min Universi ty of [place] [facility] Body temperature 2023-02-27 19:01:00 37.06 Radha Univ ersity of [place] [facility] Respiratory rate 2023-02-27 19:01:00 16 /min Univ ersity of [place] [facility] Body weight 2023-02-27 19:01:00 63.504 kg [facility]i [facility] of [place] [facility] [place] Oxygen saturation in 2023-02-27 19:01:00 99 /min University of Arterial blood by [facility] Pulse oximetry Branch Systolic blood 2023-02-27 19:01:00 148 mm[Hg] Univer sity of pressure [facility] Systolic blood 2023-02-20 19:24:00 148 mm[Hg] Univer sity of pressure [facility] Diastolic blood 2023-02-20 19:24:00 93 mm[Hg] Unive rsity of pressure [facility] Heart rate 2023-02-20 19:18:00 78 /min Universi ty of [place] [facility] Body temperature 2023-02-20 19:18:00 36.61 Radha Univ ersity of [place] [facility] Respiratory rate 2023-02-20 19:18:00 16 /min Univ ersity of [place] [facility] Body height 2023-02-20 19:18:00 152.4 cm Universi [facility] of [place] [facility] Body weight 2023-02-20 19:18:00 63.912 kg [facility]i [facility] of [place] [facility] BMI 2023-02-20 19:18:00 27.52 kg/m2 [facility] [place] [facility] Systolic blood 2021-07-03 15:37:00 133 mm[Hg] Univer sity of pressure [facility] Diastolic blood 2021-07-03 15:37:00 89 mm[Hg] Unive rsity of pressure [place] [facility] Heart rate 2021-07-03 15:37:00 63 /min Universi ty of [place] [facility] Body temperature 2021-07-03 15:37:00 36.61 Radha Univ ersity of [place] [facility] Respiratory rate 2021-07-03 15:37:00 20 /min Univ ersity of [place] [facility] Body height 2021-07-03 15:37:00 152.4 cm [facility]i [facility] [place] [facility] Body weight 2021-07-03 15:37:00 64.683 kg Universi ty of [place] [facility] BMI 2021-07-03 15:37:00 27.85 kg/m2 Universi [facility] [place] [facility] Systolic blood 2021-06-08 13:28:00 127 mm[Hg] Univer sity of pressure [place] [facility] Diastolic blood 2021-06-08 13:28:00 82 mm[Hg] Unive rsity of pressure [place] [facility] Heart rate 2021-06-08 13:28:00 69 /min Universi ty of [place] [facility] Body temperature 2021-06-08 13:28:00 36.28 Radha Univ ersity of [place] [facility] Respiratory rate 2021-06-08 13:28:00 18 /min Univ ersity of [place] [facility] Oxygen saturation in 2021-06-08 13:28:00 97 /min [facility] of Arterial blood by [place] [employer] Pulse oximetry Branch Body height 2021-06-07 02:11:00 152.4 cm Universi ty of [place] [facility] Body weight 2021-06-07 02:11:00 70.308 kg [facility]i [facility] [place] [facility] BMI 2021-06-07 02:11:00 30.27 kg/m2 [facility] [place] [facility] Respiratory rate 2021-06-07 18:15:00 18 /min Univ ersity of [place] [facility] Systolic blood 2021-06-07 18:00:00 122 mm[Hg] Univer sity of pressure [place] [facility] Diastolic blood 2021-06-07 18:00:00 72 mm[Hg] Unive rsity of pressure [place] [facility] Heart rate 2021-06-07 18:00:00 102 /min Universi ty [facility] [place] [facility] Oxygen saturation in 2021-06-07 18:00:00 100 /min University of Arterial blood by [place] [employer] Pulse oximetry Branch Body temperature 2021-06-07 17:00:00 36.78 Radha Univ ersity of [place] [facility] Body height 2021-06-07 02:11:00 152.4 cm [facility] [place] [facility] Body weight 2021-06-07 02:11:00 70.308 kg [facility] [place] [facility] BMI 2021-06-07 02:11:00 30.27 kg/m2 [facility] [place] [facility] Systolic blood 2021-06-02 17:15:00 127 mm[Hg] Univer sity of pressure [place] [facility] Diastolic blood 2021-06-02 17:15:00 87 mm[Hg] Unive rsity of pressure [place] [facility] Heart rate 2021-06-02 17:15:00 87 /min Universi ty of [facility] Body temperature 2021-06-02 17:15:00 36.61 Radha Univ ersity of [place] [facility] Respiratory rate 2021-06-02 17:15:00 16 /min Univ ersity of [facility] Body height 2021-06-02 17:15:00 154.9 cm Universi ty of [place] [facility] [place] Body weight 2021-06-02 17:15:00 70.625 kg Universi ty of [facility] BMI 2021-06-02 17:15:00 29.42 kg/m2 [facility] [place] [facility] Systolic blood 2021-05-25 14:28:00 126 mm[Hg] Univer sity of pressure [place] [facility] Diastolic blood 2021-05-25 14:28:00 84 mm[Hg] Unive rsity of pressure [place] [facility] Heart rate 2021-05-25 14:28:00 77 /min Universi ty of [facility] Body temperature 2021-05-25 14:28:00 36 Radha Univ ersity of [facility] Respiratory rate 2021-05-25 14:28:00 16 /min Univ ersity of [facility] Body height 2021-05-25 14:28:00 154.9 cm Universi ty of [place] [facility] [place] Body weight 2021-05-25 14:28:00 69.57 kg Universi ty of [place] [facility] BMI 2021-05-25 14:28:00 28.98 kg/m2 Universi ty of [facility] Procedures Procedure Date / Time Performing Clinician Source Performed CBC WITH DIFF 2023-02-20 20:45:00 [facility] HCV ANTIBODY 2023-02-20 20:45:00 Kaern Mae [facility] HIV 1/2 AG-AB WITH REFLEX 2023-02-20 20:45:00 Karen Mae [facility] SYPHILIS IGG/IGM 2023-02-20 20:45:00 Karen Mae [facility] GC & CHLAMYDIA AMPLIFIED 2023-02-20 20:44:00 Karen Mae [facility] GARDASIL 9 (HPV 9V) 2023-02-20 19:47:32 Raul Stapleton [facility] ASSIGNMENT OF BENEFITS 2023-02-20 18:56:18 Doctor Unassigned, Un [facility] CBC WITH DIFF 2021-06-08 10:08:00 Jenusaitis, [facility] CBC WITH DIFF 2021-06-08 10:08:00 Jenusaitis, [facility] TUBAL LIGATION 2021-06-07 [facility]:33[facility] 2021-06-07 19:33:00 [facility] VENOUS CORD GAS 2021-06-07 17:33:00 [facility] VENOUS CORD GAS 2021-06-07 17:33:00 [facility] POCT GLUCOSE (AUTOMATED) 2021-06-07 16:55:00 StephanieLinus rodas [facility] POCT GLUCOSE (AUTOMATED) 2021-06-07 16:55:00 Linus Vargas Uni [facility] POCT GLUCOSE (AUTOMATED) 2021-06-07 13:50:00 Stephanie, Linus Uni [facility] POCT GLUCOSE (AUTOMATED) 2021-06-07 13:50:00 StephanieLinus rodas Uni [facility] POCT GLUCOSE (AUTOMATED) 2021-06-07 11:32:00 Stephanie, Linus Uni [facility] POCT GLUCOSE (AUTOMATED) 2021-06-07 11:32:00 Stephanie, Linus Uni [facility] POCT GLUCOSE (AUTOMATED) 2021-06-07 07:30:00 Linus Vargas [facility] POCT GLUCOSE (AUTOMATED) 2021-06-07 07:30:00 Linus Vargas [facility] CENTRAL NEURAXIAL BLOCK 2021-06-07 06:46:19 [facility] Un [facility] SGOT (ASPARTATE AMINO 2021-06-07 04:22:00 Erik [facility] TRANSFER) Medical Branch CREATININE 2021-06-07 04:22:00 [facility] ALANINE AMINO 2021-06-07 [facility] Medical Branch LACTATE DEHYDROGENASE 2021-06-07 04:[facility] 2021-06-07 04:22[facility] CBC WITH DIFF 2021-06-07 04:22:00 [facility] HEPATITIS B SURFACE 2021-06-07 04:22:00 Malika [facility] ANTIGEN Medical Branch PROTEIN CREAT RATIO URINE 2021-06-07 04:22:00 Arlin Valencia Un [facility] RANDOM [facility] GALV ONLY - SYPHILIS 2021-06-07 04:22:00 [facility] IGG/IGM Medical Branch SGOT (ASPARTATE AMINO 2021-06-07 04:22:00 Erik [facility] TRANSFER) Medical Branch CREATININE 2021-06-07 04:22:00 [facility] ALANINE AMINO 2021-06-07 04:22[facility] Medical Branch LACTATE DEHYDROGENASE 2021-06-07 04:22[facility] 2021-06-07 04:22:00 Erik [facility] CBC WITH DIFF 2021-06-07 04:22:00 [facility] HEPATITIS B SURFACE 2021-06-07 04:22:00 Malika [facility] ANTIGEN Medical Branch PROTEIN CREAT RATIO URINE 2021-06-07 04:22:00 [facility]lin [facility] GALV ONLY - SYPHILIS 2021-06-07 04:22:00 [facility] IGG/IGM [facility] HB INDIRECT ANTIGLOBULIN 2021-06-07 04:16:00 [facility] RHO (D) IMMUNE GLOBULIN 2021-06-07 04:16:00 Jenusaitis, Luke Uni [facility] HB INDIRECT ANTIGLOBULIN 2021-06-07 04:16:00 [facility] RHO (D) IMMUNE GLOBULIN 2021-06-07 04:16:00 Jenusajyothi, Brielleke [facility] POCT GLUCOSE (AUTOMATED) 2021-06-07 03:28:00 Stephanie, [facility] POCT GLUCOSE (AUTOMATED) 2021-06-07 03:28:00 Stephanie, Linus [facility] COVID-19 (ID NOW RAPID 2021-06-07 02:21:00 Stephanie, [facility] TESTING) [facility] LAB ONLY COVID 2021-06-07 02:21:00 Stephanie, [facility] COVID-19 (ID NOW RAPID 2021-06-07 02:21:00 Stephanie, [facility] TESTING) [facility] LAB ONLY COVID 2021-06-07 02:21:00 Stephanie, [facility] NON-STRESS TEST 2021-06-02 18:20:57 Raul Stapleton [facility] POCT URINALYSIS 2021-06-02 17:15:00 Dao Yo [facility] DIABETES TESTING REPORTS 2021-05-26 06:01:00 Doctor Unassigned, [facility] POCT URINALYSIS 2021-05-25 14:35:00 Dao Yo [facility] PATIENT QUESTIONNAIRE 2021-05-25 06:01:00 Doctor Unassigned, [facility] Name [facility] PATIENT QUESTIONNAIRE 2021-05-18 06:01:00 Doctor Unassigned, [facility] [place] [facility] PATIENT QUESTIONNAIRE 2021-05-11 06:01:00 Doctor [facility]ass[facility], [facility] [place] [facility] Encounters Start End Encounter Admission Attending Care Care Encounter Source Date/Time Date/Time Type Type Clinicians Facility Department ID 2023-08-28 2023-08-28 Outpatient R [facility] [id number] Univers 15:00:00 15:00:00 ity [facility] 2023-03-26 2023-03-26 Outpatient R [facility] [id number] Univers 15:00:00 [facility] 2023-[facility]-07 2023-03-07 [facility] [id number] Univers 11:00:00 11:28:42 KAREN [facility] 2023-03-07 2023-03-07 [facility] 1.2.840.114 [id number] Univers 11:00:00 11:28:42 Visit Karen A EXERCISE EQUIPMENT SPECIALIST 350.1.13.10 i ty of [facility] 4.2.7.2.686 Fernando as MATERNAL [id number] Med ical & CHILD [address] [place] [address] 2023-02-27 2023-02-27 [facility]patient [facility] [id number] Univers 13:45:00 14:47:11 DAVIDSON [facility] 2023-02-27 2023-02-27 Nurse Nurse, [facility] 1.2.840.114 [id number] Univers 13:45:00 14:05:00 Visit Unknown, Attending [facility] 350.1.13.10 [facility] 4.2.7.2.686 Fernando as AKBAR?BLEA [phone] Ks myron [address] MEDICAL OFFICE [facility] 2023-02-20 2023-02-20 Outpatient R ASHLEY [facility] [id number] Univers 15:00:00 15:48:25 RAUL [facility] 2023-02-20 2023-02-20 Office Masha [facility] 1.2.840.114 [id number] Univers 14:45:00 15:47:50 Visit Karen Dee EXERCISE EQUIPMENT SPECIALIST 350.1.13.10 i ty of [address]686 Fernando as MATERNAL [id number] [facility] ical & CHILD [address] [place] [address] 2023-02-20 2023-02-20 Outpatient Acacia MAE [facility] [id number] Univers 14:45:00 15:47:50 KAREN ittanvir [facility] 2023-02-20 2023-02-20 Nurse Nurse, [facility] Rg[facility] 1.2.840.114 [id number] Univers 15:00:00 15:15:00 Visit Raul Stapleton EXERCISE EQUIPMENT SPECIALIST 350.1.13. 10 ity [facility] 4.2.7.2.686 Fernando as MATERNAL [id number] [facility] CHILD [address] [place] [address] 2023-02-20 2023-02-20 Orders Doctor ASHUTOSH 1.2.840.114 [id number] Univers 00:00:00 00:00:00 Only Unassigned, KAE 350.1.13.10 ity of Ferdinand [place] [address].7.2.686 Fernando as [id number] [address] 2022-05-01 2022-05-01 Outpatient Acacia MAE [facility] [id number] Univers 09:00:00 09:00:00 KAREN duke [facility] 2022-05-01 2022-05-01 Outpatient Acacia MAE [facility] [id number] Univers 08:30:00 08:30:00 KAREN duke [facility] 2021-08-04 2021-08-04 Outpatient Acacia YO [facility] [id number] Univers 09:45:00 09:45:00 DAO [facility] 2021-07-03 2021-07-03 Outpatient Acacia YO [facility] [id number] Univers 09:30:00 10:00:20 DAO [facility] 2021-07-03 2021-07-03 Pasquale Yo, [facility] 1.2.840.114 [id number] Univers 09:30:00 10:00:20 Roshenrrya R EXERCISE EQUIPMENT SPECIALIST 350.1.13.10 ity of [facility] 4.2.7.2.686 Fernando as MATERNAL [phone] [facility] ical & CHILD [address] [place] [address] 2021-06-06 2021-06-08 Inpatient P STEPHANIE [facility] ANASTACIA [id number] Univers 19:32:00 16:08:00 LINUS ity [facility] 2021-06-06 2021-06-08 Hospital ASHUTOSH Vargas 1.2.840.114 [id number] Univers 19:32:00 16:08:00 Encounter Linus PAL 350.1.13.10 ity of [facility] 4.2.7.2.686 Fernando as [phone] [facility] [address] 2021-06-07 2021-06-07 Anesthesia ASHUTOSH Bonilla 1.2.840.114 [id number] Univers 20:01:46 20:01:46 Event Cruz PAL 350.1.13.10 it y of HOSPITAL 4.2.7.2.686 Fernando as [id number] [facility] [address] 2021-06-07 2021-06-07 Surgery ASHUTOSH Reaves 1.2.840.114 [id number] Univers 12:58:00 14:21:00 Minesh PAL 350.1.13.10 ity of [facility] 4.2.7.2.686 Fernando as [id number] [facility] 013 Branch 2021-06-06 2021-06-07 Anesthesia Sav Claros 1.2.8 40.114 [id number] Univers 23:36:00 13:49:00 Event Hong Holcomb 350.1.13.10 ity of [facility] 4.2.7.2.686 Fernando as [id number] [facility] [address] 2021-06-07 2021-06-07 Outpatient R JEAN PAUL [facility] [id number] Univers 08:00:00 08:00:00 MINESH duke [facility] 2021-06-02 2021-06-02 [facility] 1.2.923.675 [id number] Univers 11:00:00 11:15:00 Raul Champagne EXERCISE EQUIPMENT SPECIALIST 350.1.13.10 ity of Visit REGIONAL 4.2.7.2.686 Fernando as MATERNAL [id number] [facility] CHILD [address] [place] [address] 2021-06-02 2021-06-02 Outpatient [facility] [id number] Univers 11:00:00 11:00:00 RAUL [facility] 2021-05-26 2021-05-26 Orders Doctor ASHUTOSH 1.2.840.114 [id number] Univers 00:00:00 00:00:00 Only Unassigned, KAE 350.1.13.10 ity of Ferdinand [facility] 4.2.7.2.686 Fernando as [id number] [address] 2021-05-25 2021-05-25 Outpatient [facility] [id number] Univers 08:15:00 08:40:00 BERKLEY duke [facility] 2021-05-25 2021-05-25 Routine Raul Stapleton [facility] 1.2.8 40.114 [id number] Univers 08:15:00 08:40:00 Berkley Morales EXERCISE EQUIPMENT SPECIALIST 350.1.13.10 ity of Visit REGIONAL 4.2.7.2.686 Fernando as MATERNAL [id number] [facility] & CHILD [address] [place] [address] 2021-05-25 2021-05-25 Outpatient Acacia [facility] [id number] Univers 08:00:00 08:00:00 BERKLEY duke [facility] 2021-05-25 2021-05-25 Orders Doctor ASHUTOSH 1.2.840.114 [id number] Univers 00:00:00 00:00:00 Only Unassigned, KAE 350.1.13.10 [facility] 4.2.7.2.686 Fernando as [phone] [address] 2021-05-23 2021-05-23 Outpatient Acacia [facility] [id number] Univers 13:00:00 13:00:00 BERKLEY [facility] 2021-05-23 2021-05-23 [facility] Lab, Ang-Rmchp [facility] 1.2.840. 114 [id number] Univers 13:00:00 13:00:00 Visit Carmen Berkley Stevan EXERCISE EQUIPMENT SPECIALIST 350.1.13.10 ity of REGIONAL 4.2.7.2.686 Fernando as MATERNAL [id number] [facility] & CHILD [address] [place] [address] 2021-05-22 2021-05-22 Telephone Srinath [facility] 1.2.122.964 [id number] Univers 00:00:00 00:00:00 Roshunda R EXERCISE EQUIPMENT SPECIALIST 350.1.13.10 ity of REGIONAL 4.2.7.2.686 Fernando as MATERNAL [id number] [address] 2021-05-18 2021-05-18 Outpatient R SRINATH [facility] [id number] Univers 07:45:00 08:20:39 ROSHUNDA ity o f [facility] 2021-05-18 2021-05-18 [facility]ine [facility] 1.2.840.114 [id number] Univers 07:45:00 08:20:39 Roshunda R EXERCISE EQUIPMENT SPECIALIST 350.1.13.10 ity of Visit [facility] 4.2.7.2.686 Fernando as MATERNAL [phone] [address] 2021-05-18 2021-05-18 Orders Doctor ASHUTOSH 1.2.840.114 [id number] Univers 00:00:00 00:00:00 Only Unassigned, KAE 350.1.13.10 ity of Ferdinand [facility] 4.2.7.2.686 Fernando as [id number] [address] 2021-05-11 2021-05-11 [facility]ine [facility] 1.2.840.114 [id number] Univers 13:30:00 13:30:00 Roshunda R EXERCISE EQUIPMENT SPECIALIST 350.1.13.10 ity of Visit REGIONAL 4.2.7.2.686 Fernando as MATERNAL [id number] [facility] & CHILD [address] [place] [address] 2021-05-11 2021-05-11 [place] Ultrasound, [facility] 1.2 .840.114 [id number] Univers 13:00:00 13:30:00 Visit Dao Yo EXERCISE EQUIPMENT SPECIALIST 350.1.13.10 ity of Yevgeniy Sandy REGIONAL 4.2.7.2.686 [place] MATERNAL [phone] Med ical & CHILD 369 [facility] 2021-05-11 2021-05-11 Outpatient R SRINATH [facility] [id number] Univers 13:30:00 11:20:20 DAO [facility] 2021-05-11 2021-05-11 Outpatient R SRINATH [facility] [id number] Univers 13:30:00 11:20:20 DAO [facility] 2021-05-11 2021-05-11 Orders Doctor ASHUTOSH 1.2.840.114 [id number] Univers 00:00:00 00:00:00 Only Unassigned, KAE 350.1.13.10 ity of Ferdinand [facility] 4.2.7.2.686 Fernando as [id number] [address] 2021-05-04 2021-05-04 Telephone Srinath [facility] 1.2.846.181 [id number] Univers 00:00:00 00:00:00 Dao Roger EXERCISE EQUIPMENT SPECIALIST 350.1.13.10 ity of REGIONAL 4.2.7.2.686 Fernando as MATERNAL [id number] [facility] ical & CHILD [address] [place] [address] 2021-04-27 2021-04-27 Routine Carmen [facility] 1.2.030.705 [id number] Univers 12:47:07 13:12:36 Berkley Calles EXERCISE EQUIPMENT SPECIALIST 350.1.13.10 i ty of Visit REGIONAL 4.2.7.2.686 Fernando as MATERNAL [phone] [facility] ical & CHILD [address] [place] [address] 2021-04-27 2021-04-27 Outpatient R CARMEN [facility] [id number] Univers 12:45:00 13:12:36 BERKLEY duke [facility] 2021-04-19 2021-04-19 Outpatient R LA [facility] [id number] Univers 13:45:00 15:21:11 GOMEZ irizarry f [facility] 2021-04-19 2021-04-19 Routine Provider, [facility] 1 .2.840.114 [id number] Univers 13:43:27 15:21:11 Gomez Patton EXERCISE EQUIPMENT SPECIALIST 350.1.13 .10 ity of Visit REGIONAL 4.2.7.2.686 Fernando as MATERNAL [id number] Med ical & CHILD [address] [place] [address] 2021-04-19 2021-04-19 Outpatient R [facility] [id number] Univers 13:45:00 13:45:00 ity of [facility] 2021-04-18 2021-04-18 Telephone La [facility] 1.2.840.114 [id number] Univers 00:00:00 00:00:00 Gomez Irizarry EXERCISE EQUIPMENT SPECIALIST 350.1.13.10 ity of [facility] 4.2.7.2.686 Fernando as MATERNAL [id number] Med ical & CHILD [address] [place] [address] 2021-04-17 2021-04-17 [place] Lab, [facility] 1.2.840. 114 [id number] Univers 07:48:03 08:03:34 Visit Berkley Morales EXERCISE EQUIPMENT SPECIALIST 350.1.13.10 ity of REGIONAL 4.2.7.2.686 Fernando as MATERNAL [phone] Med ical & CHILD [address] [place] [address] 2021-04-17 2021-04-17 [facility] [id number] Univers 07:45:00 07:45:00 BERKLEY duke [facility] 2021-04-11 2021-04-11 [place] [place] Lab, [facility] 1.2.840. 114 [id number] Univers 08:15:02 09:56:51 Visit Traci Cleary EXERCISE EQUIPMENT SPECIALIST 350.1.13.10 ity of Selam Coronado [facility] 4.2.7.2.686 [place] MATERNAL [id number] Med ical & CHILD [address] 2021-04-11 2021-04-11 Outpatient Acacia CORONADO [facility] [id number] Univers 09:00:00 09:00:00 SELAM pickett [facility] 2021-04-11 2021-04-11 [place] 1Riya Room [facility] 1.2. 840.114 [id number] Univers 08:13:30 08:31:13 Visit Traci Cleary EXERCISE EQUIPMENT SPECIALIST 350.1.13.10 ity of REGIONAL 4.2.7.2.686 Fernando as MATERNAL [id number] Med ical & CHILD [address] 2021-04-11 2021-04-11 Telephone La [facility] 1.2.840.114 [id number] Univers 00:00:00 00:00:00 Gomez Irizarry EXERCISE EQUIPMENT SPECIALIST 350.1.13.10 ity of REGIONAL 4.2.7.2.686 Fernando as MATERNAL [id number] Med ical & CHILD 124 [facility] 2021-04-04 2021-04-04 Routine Provider, [facility] 1 .2.840.114 [id number] Univers 12:45:16 13:43:40 Gomez Patton EXERCISE EQUIPMENT SPECIALIST 350.1.13 .10 ity of Visit REGIONAL 4.2.7.2.686 Fernando as MATERNAL [id number] Med ical & CHILD 107 [facility] 2021-04-04 2021-04-04 Outpatient R LA [facility] [id number] Univers 12:45:00 13:43:40 GOMEZ pickett [facility] 2021-04-04 2021-04-04 Orders Doctor ASHUTOSH 1.2.840.114 [id number] Univers 00:00:00 00:00:00 Only Unassigned, KAE 350.1.13.10 ity of Ferdinand [facility] 4.2.7.2.686 Fernando as [id number] [address] 2021-03-21 2021-03-21 Abstract Carmen [facility] 1.2.840.114 [id number] Univers 00:00:00 00:00:00 Berkley N EXERCISE EQUIPMENT SPECIALIST 350.1.13.10 it y of REGIONAL 4.2.7.2.686 Fernando as MATERNAL [id number] [facility] & CHILD [address] [place] [address] 2021-03-20 2021-03-20 Outpatient R LA [facility] [id number] Univers 10:15:00 10:15:00 GOMEZ ity o f [facility] 2021-03-14 2021-03-14 [place] 1, [facility] Room [facility] 1.2. 840.114 [id number] Univers 09:37:29 10:56:08 Visit Linus Vargas EXERCISE EQUIPMENT SPECIALIST 350.1.13.10 ity of REGIONAL 4.2.7.2.686 Fernando as MATERNAL [phone] [facility] & CHILD [address] [place] [address] 2021-03-14 2021-03-14 Outpatient R [facility] [id number] Univers 10:00:00 10:00:00 ity of [facility] 2021-02-14 2021-02-14 Routine [facility] 1.2.840.114 [id number] Univers 08:32:23 09:09:48 Roshunda R EXERCISE EQUIPMENT SPECIALIST 350.1.13.10 ity of Visit REGIONAL 4.2.7.2.686 Fernando as MATERNAL [id number] [facility] & CHILD [address] [place] [address] 2021-02-14 2021-02-14 Outpatient [facility] [id number] Univers 08:30:00 08:30:00 TARASNDA ity o f [facility] 2021-01-18 2021-01-18 Initial [facility] 1.2.840.114 [id number] Univers 08:29:09 09:27:27 Roshunda R EXERCISE EQUIPMENT SPECIALIST 350.1.13.10 ity of Visit [facility] 4.2.7.2.686 Fernando as MATERNAL [id number] [facility] & CHILD [address] [place] [address] 2021-01-18 2021-01-18 Outpatient [facility] [id number] Univers 08:00:00 08:00:00 TARASNDA ity o f [facility] 2021-01-18 2021-01-18 Orders Doctor ASHUTOSH 1.2.840.114 [id number] Univers 00:00:00 00:00:00 Only Unassigned, KAE 350.1.13.10 ity of Ferdinand [facility] 4.2.7.2.686 Fernando as [id number] [address] 2021-01-18 2021-01-18 Orders Doctor ASHUTOSH 1.2.840.114 [id number] Univers 00:00:00 00:00:00 Only Unassigned, KAE 350.1.13.10 ity of Ferdinand [facility]OS[facility] 4.2.7.2.686 Fernando as [id number] [address] 2020-02-10 2020-02-10 Letter Doctor ASHUTOSH 1.2.840.114 [id number] Univers 00:00:00 00:00:00 (Out) Unassigned, KAE 350.1.13.10 ity of Ferdinand [facility]OS[facility] 4.2.7.2.686 Fernando as [id number] [address] 2019-01-08 2019-01-08 Office Carmen [facility] 1.2.190.918 [id number] [facility] 10:41:27 13:03:35 Visit Berkley Calles EXERCISE EQUIPMENT SPECIALIST 350.1.13.10 it y of [facility] 4.2.7.2.686 Fernando as MATERNAL [id number] Med ical & CHILD [address] [place] [address] 2019-01-08 2019-01-08 Orders Doctor ASHUTOSH 1.2.840.114 [id number] Univers 00:00:00 00:00:00 Only Unassigned, KAE 350.1.13.10 ity of Ferdinand [facility] 4.2.7.2.686 Fernando as [id number] [address] Results Test Description Test Time Test Comments Results Result Comments Source CBC with Differential 2021-06-08 11:01:23 Test Item Value Reference Range Interpretation Comme nts WBC (test code = 6690-2) See_Comment H [A utomated message] The system which ge nerated this result transmit farhat reference range: 4.30 - 1 1.10 10*3/?L. The reference r ruifna was not used to interpr et this result as normal/abnor mal. RBC (test code = 789-8) See_Comment L [Au tomated message] The system which [employer] nerated this result transmit farhat reference range: 3.93 - 5 .25 10*6/?L. The reference r rufina was not used to interpr et this result as normal/abnor mal. HGB (test code = 718-7) 10.2 g/dL 11.6-15.0 L HCT (test code = 4544-3) 29.0 % 35.7-45.2 L MCV (test code = 787-2) 79.7 fL 80.6-95.5 L MCH (test code = 785-6) 28.0 pg 25.9-32.8 MCHC (test code = 786-4) 35.2 g/dL 31.6-35.1 H RDW-SD (test code = 54286-8) 45.6 fL 39.0-49.9 RDW-CV (test code = 788-0) 16.0 % 12.0-15.5 H PLT (test code = 777-3) See_Comment L [Au tomated message] The system which [employer] nerated this result transmit farhat reference range: 166 - 35 8 10*3/?L. The reference range was not used to interpret th is result as normal/abnormal . MPV (test code = 85769-9) 13.0 fL 9.5-12.9 H NRBC/100 WBC (test code = See_Comment [ Automated message] The 3390293262) system which [employer] nerated this result transmit farhat reference range: 0.0 - 10 .0 /100 WBCs. The reference r rufina was not used to interpr et this result as normal/abnor mal. NRBC x10^3 (test code = <0.01 See_Comment [Au tomated message] The 3338211747) system which [employer] nerated this result transmit farhat reference range: 10*3/?L. The reference range was not u sed to interpret this result as normal/abnormal . GRAN MAT (NEUT) % (test code 84.1 % = 770-8) IMM GRAN % (test code = 0.50 % 4595168636) LYMPH % (test code = 736-9) 9.9 % MONO % (test code = 5905-5) 4.7 % EOS % (test code = 713-8) 0.5 % BASO % (test code = 706-2) 0.3 % GRAN MAT x10^3(ANC) (test 15.58 10*3/uL 1.88-7.09 H code = 4580568733) IMM GRAN x10^3 (test code = 0.10 10*3/uL 0.00-0.06 H 1436622931) LYMPH x10^3 (test code = 1.84 10*3/uL 1.32-3.29 731-0) MONO x10^3 (test code = 0.88 10*3/uL 0.33-0.92 742-7) EOS x10^3 (test code = 0.10 10*3/uL 0.03-0.39 711-2) BASO x10^3 (test code = 0.06 10*3/uL 0.01-0.07 704-7) BANDS (test code = Increased A 6089564529) Lab Interpretation (test Abnormal code = 48311-5) [facility] with [id number] 11:01:23 Test Item Value Reference Range Interpretation Comments WBC (test code = See_Comment H [Automated 6690-2) message] The system which generated this result transmit farhat reference range : 4.30 - 11.10 10*3/?L. The reference range was not used to interpret this result as normal/abnormal . RBC (test code = See_Comment L [Automated 789-8) message] The system which generated this result transmit farhat reference range : 3.93 - 5.25 10*6/?L. The reference range was not used to interpret this result as normal/abnormal . HGB (test code = 10.2 g/dL 11.6-15.0 L 718-7) HCT (test code = 29.0 % 35.7-45.2 L 4544-3) MCV (test code = 79.7 fL 80.6-95.5 L 787-2) MCH (test code = 28.0 pg 25.9-32.8 785-6) MCHC (test code = 35.2 g/dL 31.6-35.1 H 786-4) RDW-SD (test code = 45.6 fL 39.0-49.9 12201-6) RDW-CV (test code = 16.0 % 12.0-15.5 H 788-0) PLT (test code = See_Comment L [Automated 777-3) message] The system which generated this result transmit farhat reference range : 166 - 358 10*3/ ?L. The reference range was not u sed to interpret th is result as normal/abnormal . MPV (test code = 13.0 fL 9.5-12.9 H 84503-5) NRBC/100 WBC (test See_Comment [Automat ed code = 1320354172) message] The system which generated this result transmit farhat reference range : 0.0 - 10.0 /100 WBCs. The reference range was not used to interpret this result as normal/abnormal . NRBC x10^3 (test code <0.01 See_Comment [Auto mated = 4176933813) message] The system which generated this result transmit farhat reference range : 10*3/?L. The reference range was not used to interpret this result as normal/abnormal . GRAN MAT (NEUT) % 84.1 % (test code = 770-8) IMM GRAN % (test code 0.50 % = 2577815105) LYMPH % (test code = 9.9 % 736-9) MONO % (test code = 4.7 % 5905-5) EOS % (test code = 0.5 % 713-8) BASO % (test code = 0.3 % 706-2) GRAN MAT x10^3(ANC) 15.58 10*3/uL 1.88-7.09 H (test code = 7590695657) IMM GRAN x10^3 (test 0.10 10*3/uL 0.00-0.06 H code = 4841497752) LYMPH x10^3 (test code 1.84 10*3/uL 1.32-3.29 = 731-0) MONO x10^3 (test code 0.88 10*3/uL 0.33-0.92 = 742-7) EOS x10^3 (test code = 0.10 10*3/uL 0.03-0.39 711-2) BASO x10^3 (test code 0.06 10*3/uL 0.01-0.07 = 704-7) BANDS (test code = Increased A 3963416863) Lab Interpretation Abnormal (test code = 23252-6) [facility] (D) IMMUNE [id number] 23:19:47 Test Item Value Reference Range Interpretation Comments RHIG CANDIDATE? No- see comment Patient i s not a (test code = candidate for R hIg- 5055) Patient is Rh Positive.Perfor med at [facility] Laboratory Services - [facility] Blood [address] [place] [address] Free: [phone] A No. [id number] [facility] (D) IMMUNE [id number] 23:19:47 Test Item Value Reference Range Interpretation Comments RHIG CANDIDATE? No- see comment Patient i s not a (test code = candidate for R hIg- 5055) Patient is Rh Positive.Perfor med at [facility] Laboratory Services - [facility] Blood [address] [place] [address] Free: [phone] A No. [id number] [facility] ONLY - SYPHILIS [id number] 18:08:39 Test Item Value Reference Range Interpretation Comments Syphilis IgG/IgM (test Non-reactive Non-reactive code = 62924-9) GIOVANNI (test code = GIOVANNI) Non-reactive - No serologic evidence of T. pallidum infection. Cannot exclude incubating or early syphilis. Submit a second specimen in 2-4 weeks if syphilis is clinically suspected. Equivocal - Further testing to follow. Reactive - Further testing to follow. Lab Interpretation (test Normal code = 58554-9) [facility] ONLY - SYPHILIS [id number] 18:08:39 Test Item Value Reference Range Interpretation Comments Syphilis IgG/IgM (test Non-reactive Non-reactive code = 47337-3) GIOVANNI (test code = GIOVANNI) Non-reactive - No serologic evidence of T. pallidum infection. Cannot exclude incubating or early syphilis. Submit a second specimen in 2-4 weeks if syphilis is clinically suspected. Equivocal - Further testing to follow. Reactive - Further testing to follow. Lab Interpretation (test Normal code = 99917-4) [facility] CORD [id number] 17:50:26 Test Item Value Reference Range Interpretation Comments BASE EXCESS, CORD (test mEq/L code = [id number]) AC PH, CORD (BEAKER) 7.18-7.38 L (test code = 3424120168) PC02, CORD (test code = See_Comment [Au tomated message] [id number]) The system [employer] generated this result transmitted ref erence range: 32 - 66 mmHg. The reference r rufina was not used to interpret this result as normal/abnor mal. PO2, CORD (test code = See_Comment H [Aut omated message] [id number]) The system [employer] generated this result transmitted ref erence range: 10 - 30 mmHg. The reference r rufina was not used to interpret this result as normal/abnor mal. BICARBONATE, CORD (test See_Comment [Au tomated message] code = 4905505241) The syste m which generated this result transmitted ref erence range: 17 - 27 mEq/L. The reference r rufina was not used to interpret this result as normal/abnor mal. Lab Interpretation (test Abnormal code = 99940-6) [facility] CORD [id number] 17:50:26 Test Item Value Reference Range Interpretation Comments BASE EXCESS, CORD (test mEq/L code = 7240408864) AC PH, CORD (BEAKER) 7.18-7.38 L (test code = 9192698811) PC02, CORD (test code = See_Comment [Au tomated message] 2788791648) The system [employer] generated this result transmitted ref erence range: 32 - 66 mmHg. The reference r rufina was not used to interpret this result as normal/abnor mal. PO2, CORD (test code = See_Comment H [Aut omated message] 4252481900) The system [employer] generated this result transmitted ref erence range: 10 - 30 mmHg. The reference r rufina was not used to interpret this result as normal/abnor mal. BICARBONATE, CORD (test See_Comment [Au tomated message] code = 8463171398) The syste m which generated this result transmitted ref erence range: 17 - 27 mEq/L. The reference r rufina was not used to interpret this result as normal/abnor mal. Lab Interpretation (test Abnormal code = 86621-7) [facility] CORD [id number] 17:48:50 Test Item Value Reference Range Interpretation Comments VENOUS BASE EXCESS, mEq/L CORD (test code = 4684570269) VENOUS PH, CORD (test 7.25-7.45 code = 6939551684) VENOUS PC02, CORD See_Comment [Automate d message] The (test code = system which ge nerated 2026261972) this result tra nsmitted reference range : 27 - 49 mmHg. The refer ence range was not used to interpret this result as normal/abnormal . VENOUS PO2, CORD (test See_Comment [Aut omated message] The code = 2033402143) system [facility] generated this result tra nsmitted reference range : 17 - 41 mmHg. The refer ence range was not used to interpret this result as normal/abnormal . VENOUS BICARBONATE, See_Comment [Automa farhat message] The CORD (test code = system [facility] generated 8971359318) this result tra nsmitted reference range : 12 - 29 mEq/L. The refe rence range was not used to interpret this result as normal/abnormal . [facility] CORD [id number] 17:48:50 Test Item Value Reference Range Interpretation Comments VENOUS BASE EXCESS, mEq/L CORD (test code = 7410892054) VENOUS PH, CORD (test 7.25-7.45 code = 6447816441) VENOUS PC02, CORD See_Comment [Automate d message] The (test code = system which ge nerated 8937364131) this result tra nsmitted reference range : 27 - 49 mmHg. The refer ence range was not used to interpret this result as normal/abnormal . VENOUS PO2, CORD (test See_Comment [Aut omated message] The code = 7319066615) system [facility] generated this result tra nsmitted reference range : 17 - 41 mmHg. The refer ence range was not used to interpret this result as normal/abnormal . VENOUS BICARBONATE, See_Comment [Automa farhat message] The CORD (test code = system [facility] generated 0727410207) this result tra nsmitted reference range : 12 - 29 mEq/L. The refe rence range was not used to interpret this result as normal/abnormal . [facility] GLUCOSE (AUTOMATED)2021-06-07 16:58:01 Test Item Value Reference Range Interpretation Comments POCT GLU (test code = 8881627842) 86 mg/dL 70-110 Lab Interpretation (test code = Normal 02170-5) [facility] GLUCOSE (AUTOMATED)2021-06-07 16:58:01 Test Item Value Reference Range Interpretation Comments POCT GLU (test code = 1706945129) 86 mg/dL 70-110 Lab Interpretation (test code = Normal 96468-6) [facility] GLUCOSE (AUTOMATED)2021-06-07 13:52:12 Test Item Value Reference Range Interpretation Comments POCT GLU (test code = 2811472084) 81 mg/dL 70-110 Lab Interpretation (test code = Normal 01896-4) [facility] GLUCOSE (AUTOMATED)2021-06-07 13:52:12 Test Item Value Reference Range Interpretation Comments POCT GLU (test code = 2706513553) 81 mg/dL 70-110 Lab Interpretation (test code = Normal 42946-6) [facility] GLUCOSE (AUTOMATED)2021-06-07 11:33:46 Test Item Value Reference Range Interpretation Comments POCT GLU (test code = 3570057352) 85 mg/dL 70-110 Lab Interpretation (test code = Normal 40460-3) [facility] GLUCOSE (AUTOMATED)2021-06-07 11:33:46 Test Item Value Reference Range Interpretation Comments POCT GLU (test code = 2604653223) 85 mg/dL 70-110 Lab Interpretation (test code = Normal 76220-7) [facility] GLUCOSE (AUTOMATED)2021-06-07 07:31:21 Test Item Value Reference Range Interpretation Comments POCT GLU (test code = 6671732865) 135 mg/dL 70-110 H Lab Interpretation (test code = Abnormal 41556-7) [facility] GLUCOSE (AUTOMATED)2021-06-07 07:31:21 Test Item Value Reference Range Interpretation Comments POCT GLU (test code = 8045961613) 135 mg/dL 70-110 H Lab Interpretation (test code = Abnormal 43767-1) [facility] [id number] 06:02:38 Test Item Value Reference Range Interpretation Comments HBsAg Semi-Quantitative (test code = Negative Negative 5195-3) [facility] B Surface [id number] 06:02:38 Test Item Value Reference Range Interpretation Comments HBsAg Semi-Quantitative (test code = Negative Negative 5195-3) [facility] [id number] 05:27:18 Test Item Value Reference Range Interpretation Comments URIC ACID (test code = 6260301160) 4.7 mg/dL 2.9-6.0 Lab Interpretation (test code = Normal 32872-7) [facility] Xcdamllzut1227-03-60 05:27:18 Test Item Value Reference Range Interpretation Comments CREATININE (test code = 0.46 mg/dL 0.50-1.04 L 7666373975) eGFR (test code = mL/min/1.73m2 2511303807) GIOVANNI (test code = GIOVANNI) Association of Glomerular Filtration Rate (GFR) and Staging of Kidney Disease* + --+ --+ ------+| GFR (mL/min/1.73 m2) ?| With Kidney Damage ?| ?Without Kidney Damage+ --------+ --------+ +| ?>90 ?| ?Stage one ?| ? Normal ?+ ---+ ---+ -------+| ?60-89 ?| ?Stage two ?| ? Decreased GFR ? + --+ --+ ------+| ?30-59 ?| ?Stage three ?| ? Stage three ? + --+ --+ ------+| ?15-29 ?| ?Stage four ? | ? Stage four ?+ ---+ ---+ -------+| ?<15 (or dialysis) ? ?| ?Stage five ? | ? Stage five ?+ ---+ ---+ -------+ *Each stage assumes the associated GFR level has been in effect for at least three months. ?Stages 1 to 5, with or without kidney disease, indicate chronic kidney disease. Notes: Determination of stages one and two (with eGFR >59mL/min/1.73 m2) requires estimation of kidney damage for at least three months as defined by structural or functional abnormalities of the kidney, manifested by either:Pathological abnormalities or Markers of kidney damage (including abnormalities in the composition of the blood or urine or abnormalities in imaging tests). Lab Interpretation Abnormal (test code = 58118-4) [facility]Asparate Amino Transfer)2021-06-07 05:27:18 Test Item Value Reference Range Interpretation Comments AST(SGOT) (test code = 3290807541) 30 U/L 13-40 Lab Interpretation (test code = Normal 91144-6) [facility] Transferase (SGPT)2021-06-07 05:27:18 Test Item Value Reference Range Interpretation Comments ALTv (test code = 1742-6) 21 U/L 5-35 Lab Interpretation (test code = Normal 23913-0) [facility] [id number] 05:27:18 Test Item Value Reference Range Interpretation Comments URIC ACID (test code = 5269204724) 4.7 mg/dL 2.9-6.0 Lab Interpretation (test code = Normal 51703-5) [facility]um Ntfpjfljbp9509-22-51 05:27:18 Test Item Value Reference Range Interpretation Comments CREATININE (test code = 0.46 mg/dL 0.50-1.04 L 5293367442) eGFR (test code = mL/min/1.73m2 5141063554) GIOVANNI (test code = GIOVANNI) Association of Glomerular Filtration Rate (GFR) and Staging of Kidney Disease* + --+ --+ ------+| GFR (mL/min/1.73 m2) ?| With Kidney Damage ?| ?Without Kidney Damage+ --------+ --------+ +| ?>90 ?| ?Stage one ?| ? Normal ?+ ---+ ---+ -------+| ?60-89 ?| ?Stage two ?| ? Decreased GFR ? + --+ --+ ------+| ?30-59 ?| ?Stage three ?| ? Stage three ? + --+ --+ ------+| ?15-29 ?| ?Stage four ? | ? Stage four ?+ ---+ ---+ -------+| ?<15 (or dialysis) ? ?| ?Stage five ? | ? Stage five ?+ ---+ ---+ -------+ *Each stage assumes the associated GFR level has been in effect for at least three months. ?Stages 1 to 5, with or without kidney disease, indicate chronic kidney disease. Notes: Determination of stages one and two (with eGFR >59mL/min/1.73 m2) requires estimation of kidney damage for at least three months as defined by structural or functional abnormalities of the kidney, manifested by either:Pathological abnormalities or Markers of kidney damage (including abnormalities in the composition of the blood or urine or abnormalities in imaging tests). Lab Interpretation Abnormal (test code = 72895-9) [facility] (Asparate Amino Transfer)2021-06-07 05:27:18 Test Item Value Reference Range Interpretation Comments AST(SGOT) (test code = 1822634472) 30 U/L 13-40 Lab Interpretation (test code = Normal 30200-2) [facility] (SGPT)2021-06-07 05:27:18 Test Item Value Reference Range Interpretation Comments ALTv (test code = 1742-6) 21 U/L 5-35 Lab Interpretation (test code = Normal 64092-5) [facility] HospitalLactate Riyembukzsxqh7751-44-90 05:26:18 Test Item Value Reference Range Interpretation Comments LDH (test code = 8739595749) 515 U/L 300-600 Lab Interpretation (test code = Normal 61560-8) [facility] Sqsaicquqzjzp9377-58-06 05:26:18 Test Item Value Reference Range Interpretation Comments LDH (test code = 6862400057) 515 U/L 300-600 Lab Interpretation (test code = Normal 88386-9) [facility] HospitalType and Screen - ONCE [id number] 05:13:40 Test Item Value Reference Range Interpretation Comments IAT (test code = Negative Performed a t [facility] 1185) Laboratory Serv [facility] [address]Qdme Free: [phone] A No. [id number] ABO & RH (test code B POSITIVE Performe d at [facility] = 20) Laboratory Serv [facility] [address]Tvbn Free: [phone] A No. [id number] [facility]Type [facility] Screen - ONCE [id number] 05:13:40 Test Item Value Reference Range Interpretation Comments IAT (test code = Negative Performed a t [facility] 1185) Laboratory Serv [facility] [address] [facility] [address]Nxda Free: [phone] A No. [id number] ABO & RH (test code B POSITIVE Performe d at [facility] = 20) Laboratory Serv [facility] [address] [facility] [address]Zzhu Free: [phone] A No. [id number] [facility]CBC with Tblztvxlqzwt9831-16-64 04:56:16 Test Item Value Reference Range Interpretation Comments WBC (test code = See_Comment H [Automated 6690-2) message] The system which generated this result transmit farhat reference range : 4.30 - 11.10 10*3/?L. The reference range was not used to interpret this result as normal/abnormal . RBC (test code = See_Comment [Automated 789-8) message] The system which generated this result transmit farhat reference range : 3.93 - 5.25 10*6/?L. The reference range was not used to interpret this result as normal/abnormal . HGB (test code = 11.3 g/dL 11.6-15.0 L 718-7) HCT (test code = 33.0 % 35.7-45.2 L 4544-3) MCV (test code = 79.5 fL 80.6-95.5 L 787-2) MCH (test code = 27.2 pg 25.9-32.8 785-6) MCHC (test code = 34.2 g/dL 31.6-35.1 786-4) RDW-SD (test code = 45.1 fL 39.0-49.9 97001-3) RDW-CV (test code = 16.1 % 12.0-15.5 H 788-0) PLT (test code = See_Comment [Automated 777-3) message] The system which generated this result transmit farhat reference range : 166 - 358 10*3/ ?L. The reference range was not u sed to interpret th is result as normal/abnormal . MPV (test code = 14.2 fL 9.5-12.9 H 99712-5) NRBC/100 WBC (test See_Comment [Automat ed code = 4508482440) message] The system which generated this result transmit farhat reference range : 0.0 - 10.0 /100 WBCs. The reference range was not used to interpret this result as normal/abnormal . NRBC x10^3 (test code <0.01 See_Comment [Auto mated = 2305744865) message] The system which generated this result transmit farhat reference range : 10*3/?L. The reference range was not used to interpret this result as normal/abnormal . GRAN MAT (NEUT) % 80.9 % (test code = 770-8) IMM GRAN % (test code 0.70 % = 6921561220) LYMPH % (test code = 12.7 % 736-9) MONO % (test code = 5.0 % 5905-5) EOS % (test code = 0.4 % 713-8) BASO % (test code = 0.3 % 706-2) GRAN MAT x10^3(ANC) 13.46 10*3/uL 1.88-7.09 H (test code = 0343961580) IMM GRAN x10^3 (test 0.12 10*3/uL 0.00-0.06 H code = 1513183705) LYMPH x10^3 (test code 2.11 10*3/uL 1.32-3.29 = 731-0) MONO x10^3 (test code 0.84 10*3/uL 0.33-0.92 = 742-7) EOS x10^3 (test code = 0.06 10*3/uL 0.03-0.39 711-2) BASO x10^3 (test code 0.05 10*3/uL 0.01-0.07 = 704-7) Lab Interpretation Abnormal (test code = 71466-4) [facility] with Pobhkjktydny1040-85-08 04:56:16 Test Item Value Reference Range Interpretation Comments WBC (test code = See_Comment H [Automated 6690-2) message] The system which generated this result transmit farhat reference range : 4.30 - 11.10 10*3/?L. The reference range was not used to interpret this result as normal/abnormal . RBC (test code = See_Comment [Automated 789-8) message] The system which generated this result transmit farhat reference range : 3.93 - 5.25 10*6/?L. The reference range was not used to interpret this result as normal/abnormal . HGB (test code = 11.3 g/dL 11.6-15.0 L 718-7) HCT (test code = 33.0 % 35.7-45.2 L 4544-3) MCV (test code = 79.5 fL 80.6-95.5 L 787-2) MCH (test code = 27.2 pg 25.9-32.8 785-6) MCHC (test code = 34.2 g/dL 31.6-35.1 786-4) RDW-SD (test code = 45.1 fL 39.0-49.9 45567-7) RDW-CV (test code = 16.1 % 12.0-15.5 H 788-0) PLT (test code = See_Comment [Automated 777-3) message] The system which generated this result transmit farhat reference range : 166 - 358 10*3/ ?L. The reference range was not u sed to interpret th is result as normal/abnormal . MPV (test code = 14.2 fL 9.5-12.9 H 34007-5) NRBC/100 WBC (test See_Comment [Automat ed code = 0083713290) message] The system which generated this result transmit farhat reference range : 0.0 - 10.0 /100 WBCs. The reference range was not used to interpret this result as normal/abnormal . NRBC x10^3 (test code <0.01 See_Comment [Auto mated = 7489162329) message] The system which generated this result transmit farhat reference range : 10*3/?L. The reference range was not used to interpret this result as normal/abnormal . GRAN MAT (NEUT) % 80.9 % (test code = 770-8) IMM GRAN % (test code 0.70 % = 1040804400) LYMPH % (test code = 12.7 % 736-9) MONO % (test code = 5.0 % 5905-5) EOS % (test code = 0.4 % 713-8) BASO % (test code = 0.3 % 706-2) GRAN MAT x10^3(ANC) 13.46 10*3/uL 1.88-7.09 H (test code = 5879596734) IMM GRAN x10^3 (test 0.12 10*3/uL 0.00-0.06 H code = 1789658529) LYMPH x10^3 (test code 2.11 10*3/uL 1.32-3.29 = 731-0) MONO x10^3 (test code 0.84 10*3/uL 0.33-0.92 = 742-7) EOS x10^3 (test code = 0.06 10*3/uL 0.03-0.39 711-2) BASO x10^3 (test code 0.05 10*3/uL 0.01-0.07 = 704-7) Lab Interpretation Abnormal (test code = 37189-8) [facility] GLUCOSE (AUTOMATED)2021-06-07 03:29:34 Test Item Value Reference Range Interpretation Comments POCT GLU (test code = 9338694998) 76 mg/dL 70-110 Lab Interpretation (test code = Normal 01901-5) [facility] GLUCOSE (AUTOMATED)2021-06-07 03:29:34 Test Item Value Reference Range Interpretation Comments POCT GLU (test code = 6439990923) 76 mg/dL 70-110 Lab Interpretation (test code = Normal 04132-7) [facility] URINALYSIS W SPECIFIC [id number] 17:16:00 Test Item Value Reference Range Interpretation Comments POCT U SP GRAV (test code = 3255) . 1.005-1.025 POCT PH U (test code = 3254) . 5-8 POCT U LEUK EST (test code = 3263) Trace Negative - Negative POCT U NIT (test code = 3262) . Negative - Negative POCT U PROT (test code = 3259) Trace Negative - Negative POCT U GLU (test code = 3256) Neg Negative - Negative POCT U KETONE (test code = 3258) . Negative - Negative POCT U UROBILI (test code = 3260) . 0.2-1 POCT U BILI (test code = 3261) . Negative - Negative POCT U BLD (test code = 3257) . Negative - Negative POCT U COLOR (test code = 3266) POCT U APPEAR (test code = 3267) [facility] W SPECIFIC [id number] 14:35:00 Test Item Value Reference Range Interpretation Comments POCT U SP GRAV (test code = 3255) . 1.005-1.025 POCT PH U (test code = 3254) . 5-8 POCT U LEUK EST (test code = 3263) . Negative - Negative POCT U NIT (test code = 3262) . Negative - Negative POCT U PROT (test code = 3259) Trace Negative - Negative POCT U GLU (test code = 3256) Neg Negative - Negative POCT U KETONE (test code = 3258) . Negative - Negative POCT U UROBILI (test code = 3260) . 0.2-1 POCT U BILI (test code = 3261) . Negative - Negative POCT U BLD (test code = 3257) . Negative - Negative POCT U COLOR (test code = 3266) POCT U APPEAR (test code = 3267) [facility]"
[2023-03-19] MEDS ORDERED: ONDANSETRON 4 MG/2 ML VIAL ONE (19:06)
[2023-03-19] MEDS ORDERED: KETOROLAC 30 MG/ML INJ ONE (19:06)
[2023-03-19] MEDS ORDERED: NA CHLORIDE 0.9% 1,000 ML ONE ×2 (19:07→19:27)
[2023-03-19 19:21] LABS: Hematocrit 34.5 % (36.0-45.0); Lymphocytes % 5.8 % (15.3-44.8); MCV 81.3 fL (80-100); MPV 10.5 fL (7.6-11.3); Platelets 213 thou/uL (152-406); RBC Red Blood Cell Count 4.24 M/uL (3.86-4.86)
[2023-03-19 19:40] LABS: Bilirubin Total 1.1 mg/dL (0.2-1.0); Potassium 3.4 mEq/L (3.5-5.1); Protein, Total 7.3 g/dL (6.4-8.2)
[2023-03-19] MEDS ORDERED: HYDROMORPHONE HCL 1 MG/ML INJ ONE (19:53)
--- NOTE | 2023-03-19 21:04 | RAD REPORT ---
EXAM DESCRIPTION: Karina Single View03/19/2023 8:49 pm CLINICAL HISTORY: epigastric pain COMPARISON: No comparisons TECHNIQUE: Portable AP view of the chest. FINDINGS: The lungs are clear. No pneumothorax or effusion. The cardiomediastinal contours are unre markable. IMPRESSION: No acute cardiopulmonary process.
[2023-03-19 21:23] LABS: Specific Gravity 1.008 (1.005-1.030)
[2023-03-19 21:25] LABS: Specific Gravity 1.008 (1.005-1.030); Urine Bacteria None Seen /HPF (<20); Urine Bilirubin NEGATIVE (Negative); Urine Blood Negative (Negative); Urine Clarity Clear (Clear); Urine Color Colorless (Yellow); Urine Glucose NEGATIVE (Negative); Urine Protein NEGATIVE (Negative); Urine RBC <5 /HPF (None Seen); Urine Urobilinogen Normal (Normal); Urine pH 6.5 (5.0-7.0)
--- NOTE | 2023-03-19 21:49 | RAD REPORT ---
EXAM DESCRIPTION: CT - Abdomen Pelvis W Contrast - 03/19/2023 9:10 pm CLINICAL HISTORY: ABD PAIN COMPARISON: Abdomen Exam Limited dated 02/28/2023 TECHNIQUE: Thin cut axial CT imaging of the abdomen and pelvis was performed following intravenous a dministration of 95 mL Isovue 300. Multiplanar reformats were generated and reviewed. All CT scans are performed using dose optimization technique as appropriate and may include automated exposure control or mA/KV adjustment according to patient size. FINDINGS: No suspicious findings in the lung bases. The liver, spleen, adrenal glands, and pancreas show no suspicious findings. Gallbladder and biliary tree are also without suspicious finding. Symmetric renal function is seen with no hydronephrosis or suspicious renal mass. Medial 11 millimete r fluid density cyst. Cortical irregularity at the right renal superior pole suggests scarring. No dilated bowel loops or bowel wall thickening. No free air, free fluid or inflammatory stranding. N o hernia, mass or bulky lymphadenopathy. The urinary bladder is without significant finding. No suspicious bony findings. IMPRESSION: No acute intra-abdominal process.
--- NOTE | 2023-03-19 23:03 | EDPHYS ---
Physician Documentation [facility] Name: Komal Ronquillo Age: 37 yrs Sex: Female : 1985 Arrival Date: 03/19/2023 Time: 18:01 Bed 4 Private MD: ED Physician Yevgeniy Lindsey HPI: 03/19 18:15 This 37 yrs old Female presents to ER via Ambulatory with complaints of cp Abdominal Pain, Chest Pain. 18:15 The patient presents with abdominal pain in the epigastric area. Onset: The cp symptoms/episode began/occurred 1.5 hour(s) ago. 18:15 The symptoms radiate to chest. Associated signs and symptoms: Pertinent positives: cp nausea and vomiting, chest pain, Pertinent negatives: constipation, diarrhea, fever. The symptoms are described as constant. Severity of pain: in the emergency department the pain is unchanged despite home interventions. Historical: - Allergies: 18:27 No Known Allergies; hb - Immunization history:: Adult Immunizations unknown. - Social history:: Smoking status: unknown. ROS: 18:20 Constitutional: Negative for body aches, chills, fever, cp 18:20 Eyes: Negative for injury, pain, redness, and discharge, cp 18:20 ENT: Negative for drainage from ear(s), ear pain, sore throat, difficulty swallowing, difficulty handling secretions, 18:20 Cardiovascular: Positive for chest pain, 18:20 Respiratory: Negative for cough, wheezing, 18:20 Abdomen/GI: Positive for abdominal pain, nausea and vomiting, of the epigastric area, Negative for diarrhea, constipation, 18:20 Neuro: Negative for altered mental status, dizziness, headache, syncope, weakness, 18:20 All other systems are negative, Exam: 18:35 Constitutional: The patient appears alert, awake, non-diaphoretic, non-toxic, well cp developed, well nourished, in obvious distress, moderately distressed, in obvious pain, uncomfortable, 18:35 Head/Face: Normocephalic, atraumatic. cp 18:35 Eyes: Periorbital structures: appear normal, Conjunctiva: normal, no exudate, no injection, Sclera: no appreciated abnormality, Lids and lashes: appear normal, bilaterally, 18:35 ENT: External ear(s): are unremarkable, Nose: is normal, Mouth: Lips: moist, Oral mucosa: pink and intact, moist, Posterior pharynx: is normal, airway is patent, no erythema, no exudate, 18:35 Neck: ROM/movement: is normal, is supple, without pain, no range of motions limitations, no meningismus, 18:35 Chest/axilla: Inspection: normal, 18:35 Cardiovascular: Rate: tachycardic, Rhythm: regular, 18:35 Respiratory: the patient does not display signs of respiratory distress, Respirations: normal, no use of accessory muscles, no retractions, labored breathing, is not present, Breath sounds: are clear throughout, no decreased breath sounds, no stridor, no wheezing, 18:35 Abdomen/GI: Inspection: abdomen appears normal, Bowel sounds: active, all quadrants, Palpation: soft, in all quadrants, severe abdominal tenderness, in the epigastric area, rebound tenderness, is not appreciated, voluntary guarding, is elicited in the epigastric area, 18:35 Back: CVA tenderness, is absent, 18:35 Skin: no rash present. 18:35 Neuro: Orientation: to person, place \T\ time. Mentation: is normal, Motor: moves all fours, strength is normal, Sensation: is normal, 18:55 ECG was reviewed by the Attending Physician. cp Vital Signs: 18:24 BP 95 / 74; Pulse 78; Resp 16; Temp 97.3; Pulse Ox 100% on R/A; Weight 63.5 kg; Height hb 5 ft. 0 in. ; Pain 10/10; 19:30 BP 170 / 89; Pulse 88; Resp 19 S; Pulse Ox 100% on R/A; ha1 20:20 BP 160 / 95; Pulse 82; Resp 18 S; Pulse Ox 100% on R/A; ha1 22:30 BP 154 / 85; Pulse 82; Resp 18 S; Pulse Ox 100% on R/A; ha1 23:16 BP 147 / 91; Pulse 96; Resp 17 S; Pulse Ox 100% on R/A; ha1 18:24 Body Mass Index 27.34 (63.50 kg, 152.4 cm) hb 18:24 Pain Scale: Adult hb MDM: 18:28 Patient medically screened. carol 19:00 Differential diagnosis: appendicitis, bowel obstruction, cholecystitis, Cholelithiasis, cp gastritis, pancreatitis, Peptic Ulcer Disease, Perf. Duodenal Ulcer, Perf. Gastric Ulcer, Pyelonephritis, Ureterolithiasis, urinary tract infection. 23:03 Data reviewed: vital signs, nurses notes, lab test result(s), EKG, radiologic studies, cp CT scan, plain films. 23:03 Consideration of Admission/Observation Escalation of care including cp admission/observation considered. I considered the following discharge prescriptions or medication management in the emergency department Medications were administered in the Emergency Department. See MAR. Independent interpretation of the following test(s) in the Emergency Department EKG: See my EKG interpretation above. Historians other than the Patient: Daughter/Son: son interprets and assists with HPI. Counseling: I had a detailed discussion with the patient and/or guardian regarding the historical points, exam findings, and any diagnostic results supporting the discharge/admit diagnosis, the presence of at least one elevated blood pressure reading (>120/80) during this emergency department visit, lab results, radiology results, the need for outpatient follow up, for definitive care, a gin inspector. Response to treatment: the patient's symptoms have markedly improved after treatment, and as a result, I will discharge patient. 03/19 18:09 Order name: CBC with Diff; Complete Time: 19:38 snw 03/19 19:38 Interpretation: Normal except: WBC 16.60; HGB 11.6; HCT 34.5; KELLY% 92.6; LYM% 5.8; MN% cp 0.6; NEUT A 15.4. 03/19 18:09 Order name: CMP; Complete Time: 20:17 snw 03/19 20:17 Interpretation: Normal except: K 3.4; GLUC 141; BILIT 1.1. cp 03/19 18:09 Order name: Lipase; Complete Time: 20:17 snw 03/19 20:18 Interpretation: Reviewed. cp 03/19 18:41 Order name: Troponin High Sensitivity; Complete Time: 20:17 cp 03/19 20:17 Interpretation: Reviewed. cp 03/19 18:49 Order name: Magnesium; Complete Time: 20:17 cp 03/19 20:18 Interpretation: Reviewed. cp 03/19 18:49 Order name: Urinalysis W/Microscopic; Complete Time: 21:52 cp 03/19 18:49 Order name: PREGU; Complete Time: 21:52 cp 03/19 19:39 Order name: CT Abd/Pelvis - IV Contrast Only; Complete Time: 21:52 cp 03/19 19:39 Order name: XRAY Chest (1 view); Complete Time: 21:52 cp 03/19 18:41 Order name: EKG; Complete Time: 18:42 cp 03/19 18:09 Order name: IV Saline Lock; Complete Time: 19:00 snw 03/19 18:09 Order name: Labs collected and sent; Complete Time: 19:00 snw 03/19 18:41 Order name: EKG - Nurse/Tech; Complete Time: 19:00 cp EC:55 Rate is 79 beats/min. Rhythm is regular. WV interval is normal. QRS interval is normal. cp QT interval is normal. T waves are Inverted in lead aVR. Interpreted by me. Reviewed by me. Administered Medications: 19:00 Drug: NS 0.9% IV 1000 ml IV at 1 bolus Per protocol; 1000 mL bolus Route: IV; Rate: 1 kc6 bolus; Site: left antecubital; 23:36 Follow up: Response: No adverse reaction; IV Status: Completed infusion; IV Intake: ha1 1000ml 19:00 Drug: Ketorolac IVP 15 mg IVP once Route: IVP; Site: left antecubital; kc6 19:30 Follow up: Response: No adverse reaction; Pain is unchanged, physician notified ha1 19:00 Drug: Ondansetron IVP 4 mg IVP once; over 2 minutes Route: IVP; Site: left antecubital; kc6 19:20 Drug: NS 0.9% IV 1000 ml IV at 1 bolus Per protocol; 1000 mL bolus Route: IV; Rate: 1 ha1 bolus; Site: left antecubital; 23:36 Follow up: Response: No adverse reaction; IV Status: Completed infusion; IV Intake: ha1 1000ml 19:48 Drug: HYDROmorphone IVP 1 mg IVP once Route: IVP; Site: left antecubital; ha1 20:20 Follow up: Response: No adverse reaction; Pain is decreased; RASS: Alert and Calm (0) ha1 23:15 Drug: Potassium PO Effervescent Tablet 50 mEq PO once; dissolve in 4 ounces of water or ha1 juice Route: PO; 23:35 Follow up: Response: No adverse reaction ha1 Disposition Summary: 03/19/23 23:03 Discharge Ordered Notes: Location: Home cp Problem: new cp Symptoms: have improved cp Condition: Stable cp Diagnosis - Epigastric pain cp Followup: cp - With: Nehemias Gonzalez MD - When: 2 - 3 days - Reason: Recheck today's complaints Discharge Instructions: - Discharge Summary Sheet cp - Abdominal Pain, Adult cp - Gastritis, Adult cp Forms: - Medication Reconciliation Form cp - Thank You Letter cp - Antibiotic Education cp - Prescription Opioid Use cp - Patient Portal Instructions cp - Leadership Thank You Letter cp Prescriptions: - Protonix 40 mg Oral Tablet - take 1 tablet ORAL route once daily; 30 tablet; Refills: 0, Product Selection cp Permitted - Zofran 4 mg Oral Tablet - take 1 tablet ORAL route every 12 hours As needed; 20 tablet; Refills: 0, cp Product Selection Permitted Signatures: Dispatcher [employer] EDMS Yevgeniy Lindsey MD MD cha Waters, Shelly, LAMINATION MACHINE OPERATOR-C LAMINATION MACHINE OPERATOR-Csnw Yevgeniy Cueva PA PA cp Aretha Suarez RN RN Domenica Rivera RN RN ha1 Tash Dupree RN RN kc6 Corrections: (The following items were deleted from the chart) 03/20 01:48 03/19 18:15 Onset: The symptoms/episode began/occurred 2 hour(s) ago, cp cp
--- NOTE | 2023-03-19 23:03 | ER ---
Nurse's Notes [facility] Name: Komal Ronquillo Age: 37 yrs Sex: Female : 1985 Arrival Date: 03/19/2023 Time: 18:01 Bed 4 Private MD: Diagnosis: Epigastric pain Presentation: 03/19 18:24 Chief complaint: Severe epigastric pain, nausea, and SOB that started 90 mins ago. hb Coronavirus screen: At this time, the client does not indicate any symptoms associated with coronavirus-19. Ebola Screen: No symptoms or risks identified at this time. Initial Sepsis Screen: Does the patient meet any 2 criteria? No. Patient's initial sepsis screen is negative. Does the patient have a suspected source of infection? No. Patient's initial sepsis screen is negative. Risk Assessment: Do you want to hurt yourself or someone else? Patient reports no desire to harm self or others. Onset of symptoms was March 19, 2023. 18:24 Method Of Arrival: Ambulatory hb 18:24 Acuity: JASMYNE 3 hb Historical: - Allergies: 18:27 No Known Allergies; hb - Immunization history:: Adult Immunizations unknown. - Social history:: Smoking status: unknown. Screenin:01 [facility] ED Fall Risk Assessment (Adult) History of falling in the last 3 months, kc6 including since admission No falls in past 3 months (0 pts) Confusion or Disorientation No (0 pts) Intoxicated or Sedated No (0 pts) Impaired Gait No (0 pts) Mobility Assist Device Used No (0 pt) Altered Elimination No (0 pt) Score/Fall Risk Level 0 - 2 = Low Risk. Abuse screen: Denies threats or abuse. Denies injuries from another. Nutritional screening: No deficits noted. Tuberculosis screening: No symptoms or risk factors identified. Assessment: 18:45 General: Appears in no apparent distress. uncomfortable, Behavior is cooperative, kc6 appropriate for age. Pain: Complains of pain in epigastric area Pain does not radiate. Pain currently is 10 out of 10 on a pain scale. Quality of pain is described as burning, Pain began 2 hours ago. Is continuous, Noted to be grimacing, guarding, moaning, resistant to movement. Neuro: Level of Consciousness is awake, alert, obeys commands, Oriented to person, place, time, situation, Appropriate for age. Cardiovascular: Reports chest pain, Capillary refill < 3 seconds. Respiratory: Reports shortness of breath Airway is patent Trachea midline Respiratory effort is even, unlabored, Respiratory pattern is regular, symmetrical. GI: Abdomen is flat, non-distended, Bowel sounds present X 4 quads. Abd is soft X 4 quads Abdomen is tender to palpation in epigastric area Reports nausea, Patient currently denies diarrhea, vomiting. : No signs and/or symptoms were reported regarding the genitourinary system. EENT: No signs and/or symptoms were reported regarding the EENT system. Derm: No signs and/or symptoms reported regarding the dermatologic system. Skin is intact, is healthy with good turgor, Skin is pink, warm \T\ dry. Musculoskeletal: No signs and/or symptoms reported regarding the musculoskeletal system. Circulation, motion, and sensation intact. Capillary refill < 3 seconds, Range of motion: intact in all extremities. 19:25 General: Appears uncomfortable, Behavior is cooperative, crying. Pain: Complains of ha1 pain in right upper quadrant Pain radiates to left clavicle Pain currently is 10 out of 10 on a pain scale. Quality of pain is described as heavy, pressure, shooting, stabbing. Neuro: Level of Consciousness is awake, alert, obeys commands, Oriented to person, place, time, situation. Cardiovascular: Heart tones S1 S2 present Patient's skin is warm and dry. Rhythm is sinus rhythm. Respiratory: Airway is patent Respiratory effort is even, unlabored, Respiratory pattern is regular, symmetrical. GI: Abdomen is flat, non-distended, Bowel sounds present X 4 quads. Abd is soft X 4 quads Abdomen is tender to palpation in right upper quadrant Reports upper abdominal pain, nausea. : No signs and/or symptoms were reported regarding the genitourinary system. Derm: Skin is pink, warm \T\ dry. Musculoskeletal: Circulation, motion, and sensation intact. Range of motion: intact in all extremities. 20:20 Reassessment: Patient and/or family updated on plan of care and expected duration. Pain ha1 level reassessed. Patient is alert, oriented x 3, equal unlabored respirations, skin warm/dry/pink. Patient states symptoms have improved. 21:20 Reassessment: Patient and/or family updated on plan of care and expected duration. Pain ha1 level reassessed. Patient is alert, oriented x 3, equal unlabored respirations, skin warm/dry/pink. Patient states feeling better. Patient states symptoms have improved. 23:16 Reassessment: Patient and/or family updated on plan of care and expected duration. Pain ha1 level reassessed. Patient is alert, oriented x 3, equal unlabored respirations, skin warm/dry/pink. Vital Signs: 18:24 BP 95 / 74; Pulse 78; Resp 16; Temp 97.3; Pulse Ox 100% on R/A; Weight 63.5 kg; Height hb 5 ft. 0 in. ; Pain 10/10; 19:30 BP 170 / 89; Pulse 88; Resp 19 S; Pulse Ox 100% on R/A; ha1 20:20 BP 160 / 95; Pulse 82; Resp 18 S; Pulse Ox 100% on R/A; ha1 22:30 BP 154 / 85; Pulse 82; Resp 18 S; Pulse Ox 100% on R/A; ha1 23:16 BP 147 / 91; Pulse 96; Resp 17 S; Pulse Ox 100% on R/A; ha1 18:24 Body Mass Index 27.34 (63.50 kg, 152.4 cm) hb 18:24 Pain Scale: Adult hb ED Course: 18:03 Patient arrived in ED. mg5 18:23 Yevgeniy Cueva PA is PHCP. cp 18:24 Yevgeniy Lindsey MD is Attending Physician. cp 18:27 Triage completed. hb 19:00 Report given to Domenica Rivera RN \T\ ANA Lisa. kc6 19:01 Inserted saline lock: 20 gauge in left antecubital area, using aseptic technique. Blood kc6 collected. Patient maintains SpO2 saturation greater than 95% on room air. 19:01 Patient has correct armband on for positive identification. Placed in gown. Bed in low kc6 position. Call light in reach. Side rails up X2. Adult w/ patient. Client placed on continuous cardiac and pulse oximetry monitoring. NIBP monitoring applied. 19:01 Arm band placed on. kc6 20:51 XRAY Chest (1 view) In Process Unspecified. EDMS 21:08 CT Abd/Pelvis - IV Contrast Only In Process Unspecified. EDMS 23:02 Nehemias Gonzalez MD is Referral Physician. cp 23:37 No provider procedures requiring assistance completed. IV discontinued, intact, ha1 bleeding controlled, No redness/swelling at site. Pressure dressing applied. 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 ha1 Administered Medications: 19:00 Drug: NS 0.9% IV 1000 ml IV at 1 bolus Per protocol; 1000 mL bolus Route: IV; Rate: 1 kc6 bolus; Site: left antecubital; 23:36 Follow up: Response: No adverse reaction; IV Status: Completed infusion; IV Intake: ha1 1000ml 19:00 Drug: Ketorolac IVP 15 mg IVP once Route: IVP; Site: left antecubital; kc6 19:30 Follow up: Response: No adverse reaction; Pain is unchanged, physician notified ha1 19:00 Drug: Ondansetron IVP 4 mg IVP once; over 2 minutes Route: IVP; Site: left antecubital; kc6 19:20 Drug: NS 0.9% IV 1000 ml IV at 1 bolus Per protocol; 1000 mL bolus Route: IV; Rate: 1 ha1 bolus; Site: left antecubital; 23:36 Follow up: Response: No adverse reaction; IV Status: Completed infusion; IV Intake: ha1 1000ml 19:48 Drug: HYDROmorphone IVP 1 mg IVP once Route: IVP; Site: left antecubital; ha1 20:20 Follow up: Response: No adverse reaction; Pain is decreased; RASS: Alert and Calm (0) ha1 23:15 Drug: Potassium PO Effervescent Tablet 50 mEq PO once; dissolve in 4 ounces of water or ha1 juice Route: PO; 23:35 Follow up: Response: No adverse reaction ha1 Medication: 23:17 VIS not applicable for this client. ha1 Intake: 23:36 IV: 1000ml; Total: 1000ml. ha1 23:36 IV: 1000ml; Total: 2000ml. ha1 Outcome: 23:03 Discharge ordered by . cp 23:37 Discharged to home ambulatory, with family, ha1 23:37 Condition: stable 23:37 Discharge instructions given to patient, family, Instructed on discharge instructions, follow up and referral plans. medication usage, Demonstrated understanding of instructions, follow-up care, medications, Prescriptions given X 2, 23:38 Patient left the ED. ha1 Signatures: Dispatcher [employer] EDMS Yevgeniy Cueva PA PA cp Aretha Suarez RN RN Domenica Rivera RN RN ha1 Tash Dupree RN RN kc6 Torri Shaikh mg5 Corrections: (The following items were deleted from the chart) 18:27 18:24 Pulse 78bpm; Resp 16bpm; Pulse Ox 100% RA; Temp 97.3F; 63.5 kg; Height 5 ft. 0 hb in.; BMI: 27.3; Pain 10/10, Adult; hb 23:36 21:30 BP 160 / 95; Pulse 82bpm; Resp 18bpm; Spontaneous; Pulse Ox 100% RA; ha1 ha1
[2023-03-19] MEDS ORDERED: POTASSIUM 25 MEQ EFFERV TAB ONE (23:15)
[2023-03-20] VITALS: TEMP 97.3; O2SAT 100
[2023-03-20 00:18] VITALS: BP 147/91
--- NOTE | 2023-03-21 09:51 | EKG ---
Test Date: 2023-03-19 Test Time: 18:48:52 Graduation Coach: JODEE MEASUREMENT RESULTS: Intervals: Rate: 79 OH: 146 QRSD: 80 QT: 368 QTc: 421 Burton: P: 73 OH: 146 QRS: 90 T: 42 INTERPRETIVE STATEMENTS: Normal sinus rhythm Rightward axis Borderline ECG No previous ECG available for comparison Electronically Signed On 03-21-23 09:46:52 CDT by Cullen Erickson
== END 2023-03-19 23:38 | disposition home or self-care (01) ==
LOC: ER 18:01
DX: R10.13 Epigastric pain (principal); R11.2 Nausea with vomiting, unspecified
CPT/HCPCS: 36415; 71045; 74177; 80053; 81001; 81025; 83690; 83735; 84484; 85025; 93005; 96361; 96374; 96375; 99285; J1170; J2405; J7030; Q9967